=== PATIENT | male | born 1985 | race Caucasian/White ===

== ENCOUNTER 2018-06-30 21:51 | Emergency (ER) | payer OTHER ==
[~2018-06-30] VITALS: Ht 185.4 cm; Wt 265.9 kg
[~2018-06-30 21:51] MED LIST: APIX5TAB3 PO; INSU100V36 SQ; LANTUS SQ; METO25TA6 PO; MULT-1085 PO
[2018-06-30 22:28] VITALS: BP 133/91
== END 2018-06-30 22:54 | disposition home or self-care (01) ==
LOC: ER 21:52
DX: Z77.21 Contact with and (suspected) exposure to potentially hazardous body fluids (principal); E11.9 Type 2 diabetes mellitus without complications; I48.91 Unspecified atrial fibrillation; Z88.0 Allergy status to penicillin; Z79.4 Long term (current) use of insulin; Z79.899 Other long term (current) drug therapy
CPT/HCPCS: 99281

== ENCOUNTER 2018-10-20 12:58 | Emergency (ER) | payer OTHER ==
[~2018-10-20] VITALS: Ht 193 cm; Wt 129.6 kg
[2018-10-20 13:09] VITALS: BP 162/94
== END 2018-10-20 14:21 | disposition home or self-care (01) ==
LOC: ER 12:58
DX: S61.552A Open bite of left wrist, initial encounter (principal); S61.551A Open bite of right wrist, initial encounter; I48.91 Unspecified atrial fibrillation; E11.9 Type 2 diabetes mellitus without complications; Z88.0 Allergy status to penicillin; Z79.4 Long term (current) use of insulin; Z79.899 Other long term (current) drug therapy; Y04.1XXA Assault by human bite, initial encounter; Y93.89 Activity, other specified; Y92.89 Other specified places as the place of occurrence of the external cause; Y99.8 Other external cause status
CPT/HCPCS: 99281

== ENCOUNTER 2019-01-24 17:19 | Emergency (ER) | payer OTHER ==
[~2019-01-24] VITALS: Ht 190.5 cm; Wt 129.6 kg
[2019-01-24 17:20] VITALS: BP 141/88
[2019-01-24] MEDS ORDERED: SULF1TAB49 PO (17:42)
== END 2019-01-24 17:50 | disposition home or self-care (01) ==
LOC: ER 17:19
DX: L03.116 Cellulitis of left lower limb (principal); L02.416 Cutaneous abscess of left lower limb; I48.91 Unspecified atrial fibrillation; E11.9 Type 2 diabetes mellitus without complications; F10.99 Alcohol use, unspecified with unspecified alcohol-induced disorder; Z86.14 Personal history of Methicillin resistant Staphylococcus aureus infection; Z88.0 Allergy status to penicillin; Z79.899 Other long term (current) drug therapy; Z79.4 Long term (current) use of insulin; Y90.9 Presence of alcohol in blood, level not specified
CPT/HCPCS: 99283

== ENCOUNTER 2020-03-26 19:26 | Emergency (ER) | payer OTHER ==
[2020-03-26 19:33] VITALS: BP 139/97
== END 2020-03-26 20:22 | disposition home or self-care (01) ==
LOC: ER 19:27
DX: Z77.21 Contact with and (suspected) exposure to potentially hazardous body fluids (principal); I48.91 Unspecified atrial fibrillation; E11.9 Type 2 diabetes mellitus without complications; Z86.14 Personal history of Methicillin resistant Staphylococcus aureus infection; Z72.89 Other problems related to lifestyle; Z88.0 Allergy status to penicillin; Z79.4 Long term (current) use of insulin; Z79.899 Other long term (current) drug therapy
CPT/HCPCS: 99281

== ENCOUNTER 2020-07-20 20:09 | Emergency (ER) | payer OTHER ==
[~2020-07-20] VITALS: Ht 193 cm; Wt 149.2 kg
[2020-07-20 21:08] VITALS: BP 136/86
== END 2020-07-20 21:09 | disposition home or self-care (01) ==
LOC: ER 20:10 → MERGE 20:10 → EEVIPCON 20:10 → ER 21:09
DX: M25.562 Pain in left knee (principal); Z88.0 Allergy status to penicillin; Z87.828 Personal history of other (healed) physical injury and trauma
CPT/HCPCS: 73564; 99283

== ENCOUNTER 2020-08-01 14:50 | Outpatient (CLI) | payer BC ==
[2020-08-01 16:43] LABS: HEMOGLOBIN A1C 6.7 % (4.5-6.2)
[2020-08-01 16:49] LABS: ALANINE AMINOTRANSFERASE 34 U/L (12-78); ALBUMIN 4.2 G/DL (3.4-5.0); ALBUMIN/GLOBULIN RATIO 1.1 (1.1-1.5); ALKALINE PHOSPHATASE 66 IU/L (46-116); ANION GAP 14 (8-16); ASPARTATE AMINO TRANSFERASE 24 U/L (10-37); BILIRUBIN,TOTAL 0.5 MG/DL (0.1-1.0); BLOOD UREA NITROGEN 15 MG/DL (7-18); CALCIUM 9.5 MG/DL (8.5-10.1); CHLORIDE 104 MMOL/L (99-107); CHOL/HDL RATIO 3.5 (0.00-4.99); CHOLESTEROL 173 MG/DL (0-200); GLUCOSE 147 MG/DL (70-104); HDL CHOLESTEROL 49 MG/DL (35-60); LDL CHOLESTEROL 107 MG/DL (50-100); POTASSIUM 3.9 MMOL/L (3.5-5.1); SODIUM 140 MMOL/L (135-145); TOTAL CARBON DIOXIDE 22.5 MMOL/L (24-32); TOTAL PROTEIN 7.9 G/DL (6.4-8.2); TRIGLYCERIDES 113 MG/DL (20-135); eGFR 85 ML/MIN
== END 2020-08-01 23:59 | disposition home or self-care (01) ==
LOC: LAB 14:50
PROVIDERS: ATTEND Nurse Practitioner Family
DX: E78.00 Pure hypercholesterolemia, unspecified (principal); I11.9 Hypertensive heart disease without heart failure; E70.9 Disorder of aromatic amino-acid metabolism, unspecified
CPT/HCPCS: 36415; 80053; 80061; 83036

== ENCOUNTER 2021-08-06 06:53 | Outpatient (CLI) | payer BC ==
[~2021-08-06 06:53] MED LIST changes: +LOP25T PO; -METO25TA6 PO
[2021-08-06 08:26] LABS: HEMOGLOBIN A1C 7.1 % (4.5-6.2)
[2021-08-06 08:40] LABS: ALANINE AMINOTRANSFERASE 56 U/L (12-78); ALBUMIN/GLOBULIN RATIO 1.1 (1.1-1.5); ALKALINE PHOSPHATASE 56 IU/L (46-116); ANION GAP 11 (8-16); ASPARTATE AMINO TRANSFERASE 46 U/L (10-37); BILIRUBIN,TOTAL 0.6 MG/DL (0.1-1.0); BLOOD UREA NITROGEN 10 MG/DL (7-18); BUN/CREATININE RATIO 11.8 (5.4-32.0); CALCIUM 8.9 MG/DL (8.5-10.1); CHLORIDE 104 MMOL/L (99-107); CREATININE 0.85 MG/DL (0.60-1.10); GLUCOSE 177 MG/DL (70-104); POTASSIUM 4.3 MMOL/L (3.5-5.1); SODIUM 138 MMOL/L (135-145); TOTAL CARBON DIOXIDE 22.8 MMOL/L (24-32); TOTAL PROTEIN 7.5 G/DL (6.4-8.2); eGFR > 90 ML/MIN
== END 2021-08-06 23:59 | disposition home or self-care (01) ==
LOC: LAB 06:53
PROVIDERS: ATTEND Nurse Practitioner Family
DX: E11.9 Type 2 diabetes mellitus without complications (principal); E78.00 Pure hypercholesterolemia, unspecified; I11.9 Hypertensive heart disease without heart failure; E83.52 Hypercalcemia
CPT/HCPCS: 36415; 80053; 82043; 82306; 82570; 83036

== ENCOUNTER 2022-03-24 22:42 | Emergency (ER) | payer BC, OTHER ==
[~2022-03-24] VITALS: Ht 193 cm; Wt 145.4 kg
[2022-03-24 23:43] VITALS: BP 124/85
== END 2022-03-25 00:18 | disposition home or self-care (01) ==
LOC: ER 22:42
DX: Z77.21 Contact with and (suspected) exposure to potentially hazardous body fluids (principal); E11.9 Type 2 diabetes mellitus without complications; Z86.14 Personal history of Methicillin resistant Staphylococcus aureus infection; I51.9 Heart disease, unspecified; Z88.0 Allergy status to penicillin; Z79.899 Other long term (current) drug therapy
CPT/HCPCS: 99281

== ENCOUNTER 2023-07-23 16:44 | Emergency (ER) | payer OTHER ==
[~2023-07-23] VITALS: Ht 190.5 cm; Wt 180.6 kg
[2023-07-23 17:27] VITALS: BP 173/108; PULSE 122; RESP 16; TEMP 98; O2SAT 98
== END 2023-07-23 17:57 | disposition home or self-care (01) ==
LOC: ER 16:45
DX: S00.83XA Contusion of other part of head, initial encounter (principal); E11.9 Type 2 diabetes mellitus without complications; I48.91 Unspecified atrial fibrillation; I25.10 Atherosclerotic heart disease of native coronary artery without angina pectoris; Z79.899 Other long term (current) drug therapy; Z79.4 Long term (current) use of insulin; Z72.89 Other problems related to lifestyle; Z88.0 Allergy status to penicillin; X58.XXXA Exposure to other specified factors, initial encounter; Y93.89 Activity, other specified; Y92.89 Other specified places as the place of occurrence of the external cause; Y99.8 Other external cause status
CPT/HCPCS: 99281

== ENCOUNTER 2024-01-07 04:32 | Emergency (ER) | payer BC, OTHER ==
[~2024-01-07] VITALS: Ht 195.6 cm; Wt 175.0 kg
[2024-01-07] MEDS: diltiazem 5mg/ml 5ml inj. IV ONE ×3 (05:04→05:31)
[2024-01-07 05:25] LABS: BASOPHILS # (AUTO) 0.1 X10'3 (0-0.2); BASOPHILS % (AUTO) 1.3 % (0-1); EOSINOPHILS # (AUTO) 0.1 X10'3 (0-0.9); EOSINOPHILS % (AUTO) 1.4 % (0-6); HEMOGLOBIN 15.5 g/dl (14.0-17.9); MEAN CORPUSCULAR HEMOGLOBIN 31.6 PG (27.0-31.0); MEAN CORPUSCULAR HGB CONC 33.6 g/dL (33.0-36.5); MEAN PLATELET VOLUME 9.3 FL (7.4-10.4); MONOCYTES # (AUTO) 0.7 X10'3 (0-0.9); MONOCYTES % (AUTO) 11.4 % (2-12); NEUTROPHILS # (AUTO) 3.3 X10'3 (1.8-7.7); NEUTROPHILS % (AUTO) 53.9 % (42-75); PLATELET COUNT 147 X10'3 (140-440); RED BLOOD COUNT 4.89 X10'6 (4.70-6.10); RED CELL DISTRIBUTION WIDTH 13.5 % (11.5-14.5); WHITE BLOOD COUNT 6.1 X10'3 (4.5-11.0)
[2024-01-07 05:36] LABS: ALBUMIN 3.6 G/DL (3.4-5.0); ANION GAP 12 (8-16); BLOOD UREA NITROGEN 10 MG/DL (7-18); BUN/CREATININE RATIO 9.9 (10.0-20.0); CALCIUM 8.9 MG/DL (8.5-10.1); CHLORIDE 103 MMOL/L (99-107); CREATININE 1.01 MG/DL (0.60-1.10); GLUCOSE 219 MG/DL (70-104); POTASSIUM 3.8 MMOL/L (3.5-5.1); PRO BRAIN NATRIURETIC PEPTIDE < 30 PG/ML (0-125); SODIUM 138 MMOL/L (135-145); TOTAL CARBON DIOXIDE 22.6 MMOL/L (24-32); eCRCL 124 ML/MIN; eGFR 82 ML/MIN
[2024-01-07] MEDS: metoprolol tartrate 1mg/ml inj IV SCH (05:51)
[2024-01-07] MEDS: metoprolol succinate 25mg (24-HOUR) SR. Tablet PO ONE (06:02)
[2024-01-07] MEDS: normal saline 1000ml 1,000 ML IV ONE (06:21)
[2024-01-07] MEDS: etomidate 2mg/ml inj. IV ONE (07:32)
[2024-01-07 08:02] VITALS: BP 133/88; PULSE 85; RESP 18; TEMP 98.2; O2SAT 94
== END 2024-01-07 09:00 | disposition home or self-care (01) ==
LOC: ER 04:33
DX: I48.20 Chronic atrial fibrillation, unspecified (principal); E11.9 Type 2 diabetes mellitus without complications; Z88.0 Allergy status to penicillin; Z79.899 Other long term (current) drug therapy; Z79.4 Long term (current) use of insulin
CPT/HCPCS: 36415; 71045; 80048; 83880; 84484; 85025; 92960; 93005; 96361; 96374; 96375; 96376; 99152; 99291; J3490; J7030; 94760

== ENCOUNTER 2024-01-20 06:12 | Emergency (ER) | payer BC ==
[~2024-01-20] VITALS: Ht 195.6 cm; Wt 81.6 kg
[2024-01-20] MEDS: insulin regular, human 10 units/0.1 ml syringe SQ ONE (06:55)
[2024-01-20 07:02] VITALS: BP 161/100; PULSE 84; RESP 16; TEMP 98.6; O2SAT 99
== END 2024-01-20 07:03 | disposition home or self-care (01) ==
LOC: ER 06:13
DX: E11.65 Type 2 diabetes mellitus with hyperglycemia (principal); I48.91 Unspecified atrial fibrillation; Z88.0 Allergy status to penicillin; Z79.899 Other long term (current) drug therapy; Z79.4 Long term (current) use of insulin
CPT/HCPCS: 82948; 96372; 99283; J1815

== ENCOUNTER 2024-03-14 09:33 | Inpatient (IN) | payer BC ==
[~2024-03-14] VITALS: Ht 195.6 cm; Wt 140.0 kg
[2024-03-14 09:58] LABS: BASOPHILS # (AUTO) 0.1 X10'3 (0-0.2); BASOPHILS % (AUTO) 0.7 % (0-1); EOSINOPHILS # (AUTO) 0.1 X10'3 (0-0.9); EOSINOPHILS % (AUTO) 0.8 % (0-6); HEMATOCRIT 47.3 % (42.0-52.0); HEMOGLOBIN 15.5 g/dl (14.0-17.9); LYMPHOCYTES # (AUTO) 1.5 X10'3 (1.1-4.8); LYMPHOCYTES % (AUTO) 16.1 % (21-51); MEAN CORPUSCULAR HEMOGLOBIN 31.3 PG (27.0-31.0); MEAN CORPUSCULAR HGB CONC 32.7 g/dL (33.0-36.5); MEAN CORPUSCULAR VOLUME 95.9 FL (78-98); MEAN PLATELET VOLUME 9.9 FL (7.4-10.4); MONOCYTES # (AUTO) 0.8 X10'3 (0-0.9); MONOCYTES % (AUTO) 8.8 % (2-12); NEUTROPHILS % (AUTO) 73.6 % (42-75); PLATELET COUNT 181 X10'3 (140-440); RED BLOOD COUNT 4.94 X10'6 (4.70-6.10); RED CELL DISTRIBUTION WIDTH 14.2 % (11.5-14.5); WHITE BLOOD COUNT 9.5 X10'3 (4.5-11.0)
[2024-03-14 10:17] LABS: ALANINE AMINOTRANSFERASE 321 U/L (12-78); ALBUMIN 3.4 G/DL (3.4-5.0); ALBUMIN/GLOBULIN RATIO 0.9 (1.1-1.5); ALKALINE PHOSPHATASE 82 IU/L (46-116); ANION GAP 18 (8-16); ASPARTATE AMINO TRANSFERASE 272 U/L (10-37); BILIRUBIN,TOTAL 3.1 MG/DL (0.1-1.0); BLOOD UREA NITROGEN 11 MG/DL (7-18); BUN/CREATININE RATIO 9.8 (10.0-20.0); CALCIUM 8.7 MG/DL (8.5-10.1); CHLORIDE 98 MMOL/L (99-107); CREATININE 1.12 MG/DL (0.60-1.10); GLUCOSE 205 MG/DL (70-104); POTASSIUM 4.4 MMOL/L (3.5-5.1); SODIUM 133 MMOL/L (135-145); TOTAL CARBON DIOXIDE 16.9 MMOL/L (24-32); TOTAL PROTEIN 7.1 G/DL (6.4-8.2); eCRCL 110 ML/MIN; eGFR 73 ML/MIN
[2024-03-14] MEDS: magnesium sulf-water 2g/50mL 50 ML IV ONE (10:21)
[2024-03-14] MEDS: midazolam 1 mg/ML 2ml injection IV ONE (10:21)
[2024-03-14 10:26] LABS: PRO BRAIN NATRIURETIC PEPTIDE 1226 PG/ML (0-125)
[2024-03-14] MEDS: etomidate 2mg/ml inj. IV ONE (10:41)
[2024-03-14 10:58] VITALS: RESP 18; O2SAT 100
[2024-03-14] MEDS ORDERED: ondansetron/PF 4mg/2ml inj IV PRN (13:10)
[2024-03-14] MEDS ORDERED: magnesium hydroxide 30ml (MOM) UD suspension PO PRN (13:10)
[2024-03-14] MEDS ORDERED: potassium Cl 40MEQ/1/2NS 520ml 520 ML IV PRN (13:10)
[2024-03-14] MEDS ORDERED: mag hydrox/Alum hydrox/simeth 30ml oral suspension PO PRN (13:10)
[2024-03-14] MEDS ORDERED: potassium Cl 20 mEq SR tablet PO PRN ×2 (13:10)
[2024-03-14] MEDS ORDERED: acetaminophen 325mg tablet PO PRN (13:10)
[2024-03-14] MEDS ORDERED: morphine 2 MG/ML inj. syringe IV PRN (13:10)
[2024-03-14] MEDS ORDERED: magnesium sulf-water 4G/100mL 100 ML IV PRN (13:10)
[2024-03-14] MEDS ORDERED: magnesium Cl slow-release 64mg tablet PO PRN (13:10)
[2024-03-14] MEDS ORDERED: magnesium sulf-water 2g/50mL 50 ML IV PRN (13:10)
[2024-03-14] MEDS ORDERED: HYDROcodone/acetaminophen 5mg/325mg tablet PO PRN (13:10)
[2024-03-14] MEDS: PERFLUTREN PROTEIN-A MICROSPHR (Optison) 0.22 MG/ML 3ML VIAL IV ONE (13:24)
[2024-03-14] MEDS: furosemide 10 MG/1 ML 10ml inj IV ONE (13:33)
[2024-03-14 13:50] LABS: HEMOGLOBIN A1C 7.4 % (4.5-6.2)
[2024-03-14 14:05] LABS: BILIRUBIN,URINE MODERATE (Neg); CLARITY,URINE SLIGHTLY CLOUDY (Clear); COLOR,URINE YELLOW (Yellow); GLUCOSE, URINE 250 mg/dl (Neg); KETONES,URINE >=80 mg/dl (Neg); LEUKOCYTE ESTERASE ,URINE NEGATIVE (Neg); NITRITES, URINE NEGATIVE (Neg); OCCULT BLOOD,URINE TRACE-INTACT (Neg); PROTEIN,URINE 100 mg/dl (Neg)
[2024-03-14 14:41] LABS: UA COLLECTION TYPE VOIDED
[2024-03-14 14:44] LABS: RBC,URINE 0-2 /HPF (0-2); WBC,URINE 20-30 /HPF (0-4)
[2024-03-14 14:45] LABS: BACTERIA,URINE FEW /HPF (Neg); MUCUS STRANDS MODERATE /LPF (Neg); SQUAMOUS EPITHELIAL CELL,UR FEW /LPF (FEW)
[2024-03-14] MEDS ORDERED: CHOL20004 PO (16:22)
[2024-03-14] MEDS ORDERED: INSU300I SQ (16:22)
[2024-03-14] MEDS ORDERED: glucagon, human recombinant 1mg kit SUBCUT PRN (16:55)
[2024-03-14] MEDS ORDERED: DEXTROSE 15 GM of carb/4 tabs (each vial/BOTTLE has 4 tablets) PO PRN ×2 (16:55)
[2024-03-14] MEDS ORDERED: dextrose 50%-water 50ml dispensing syringe IV PRN ×2 (16:55)
[2024-03-14] MEDS: INSULIN LISPRO 100 UNIT/ML INSULN.PEN MULTI-DOSE SQ SCH (17:31)
[2024-03-14] MEDS: metoprolol succinate 25mg (24-HOUR) SR. Tablet PO SCH (17:34)
[2024-03-14 18:00] VITALS: BP 134/97; PULSE 112; RESP 20; TEMP 97.4; O2SAT 91
[2024-03-14 19:57] LABS: CREATININE 1.17 MG/DL (0.60-1.10); eCRCL 106 ML/MIN; eGFR 69 ML/MIN
[2024-03-14] MEDS: docusate sod 100mg capsule PO SCH (20:00)
[2024-03-14] MEDS: K and/or MAG REPLACEMENT MC SCH (20:00)
[2024-03-14] MEDS: furosemide 10 MG/1 ML 10ml inj IV SCH (21:14)
[2024-03-14] MEDS: apixaban 5mg tablet PO SCH (21:15)
[2024-03-14] MEDS: heparin, porcine 5000 units/ml vial SQ SCH (21:16)
[2024-03-14 22:00] VITALS: BP 121/92; PULSE 106; RESP 15; TEMP 97.3; O2SAT 94
[2024-03-14] MEDS ORDERED: ROSU40TA PO (22:58)
[2024-03-15] VITALS (8 sets, daily range): BP systolic 105–144; BP diastolic 60–100; PULSE 93–100; RESP 14–21; TEMP 97–98.6; O2SAT 94–98
[2024-03-15] MEDS: EMPAGLIFLOZIN 10 MG TABLET PO SCH (07:46)
[2024-03-15] MEDS: spironolactone 25 MG tablet PO SCH (07:48)
[2024-03-15] MEDS: CefTRIAXone/D5W-Rocephin 1gm 50 ML IV SCH (07:49)
[2024-03-15] MEDS: insulin glargine (Lantus) pen - multi-dose SQ SCH (07:51)
[2024-03-15 07:55] LABS: BASOPHILS # (AUTO) 0.1 X10'3 (0-0.2); EOSINOPHILS # (AUTO) 0.1 X10'3 (0-0.9); HEMATOCRIT 43.2 % (42.0-52.0); HEMOGLOBIN 14.4 g/dl (14.0-17.9); LYMPHOCYTES # (AUTO) 1.2 X10'3 (1.1-4.8); LYMPHOCYTES % (AUTO) 18.6 % (21-51); MEAN CORPUSCULAR HEMOGLOBIN 31.9 PG (27.0-31.0); MEAN CORPUSCULAR HGB CONC 33.4 g/dL (33.0-36.5); MEAN CORPUSCULAR VOLUME 95.4 FL (78-98); MEAN PLATELET VOLUME 10.3 FL (7.4-10.4); MONOCYTES # (AUTO) 0.7 X10'3 (0-0.9); NEUTROPHILS # (AUTO) 4.3 X10'3 (1.8-7.7); NEUTROPHILS % (AUTO) 67.4 % (42-75); PLATELET COUNT 139 X10'3 (140-440); RED BLOOD COUNT 4.52 X10'6 (4.70-6.10); WHITE BLOOD COUNT 6.3 X10'3 (4.5-11.0)
[2024-03-15 08:30] LABS: ANION GAP 13 (8-16); BLOOD UREA NITROGEN 15 MG/DL (7-18); BUN/CREATININE RATIO 15.2 (10.0-20.0); CALCIUM 8.5 MG/DL (8.5-10.1); CHLORIDE 96 MMOL/L (99-107); CREATININE 0.99 MG/DL (0.60-1.10); GLUCOSE 221 MG/DL (70-104); POTASSIUM 3.8 MMOL/L (3.5-5.1); SODIUM 132 MMOL/L (135-145); TOTAL CARBON DIOXIDE 23.5 MMOL/L (24-32); eCRCL 125 ML/MIN; eGFR 84 ML/MIN
[2024-03-15 11:43] LABS: ALANINE AMINOTRANSFERASE 215 U/L (12-78); ALBUMIN/GLOBULIN RATIO 0.8 (1.1-1.5); ALKALINE PHOSPHATASE 101 IU/L (46-116); ASPARTATE AMINO TRANSFERASE 119 U/L (10-37); BILIRUBIN,DIRECT 0.9 MG/DL (0-0.3); BILIRUBIN,TOTAL 1.7 MG/DL (0.1-1.0); TOTAL PROTEIN 6.6 G/DL (6.4-8.2)
[2024-03-15] MEDS ORDERED: nitroGLYCERIN 0.4mg SUBLingual tab SL PRN (16:10)
[2024-03-15] MEDS ORDERED: aminophylline 250mg/10ml inj. IV PRN (16:10)
[2024-03-15] MEDS ORDERED: metoprolol tartrate 1mg/ml inj IV PRN (16:10)
[2024-03-15] MEDS: ALPRAZolam 0.25mg tablet PO PRN (17:43)
[2024-03-15] MEDS: furosemide 40mg/4ml inj IV SCH (20:28)
[2024-03-16] VITALS (12 sets, daily range): BP systolic 96–155; BP diastolic 68–105; PULSE 84–108; RESP 15–18; TEMP 97.2–98.2; O2SAT 93–96
[2024-03-16 07:28] LABS: ALANINE AMINOTRANSFERASE 183 U/L (12-78); ALBUMIN 3.2 G/DL (3.4-5.0); ALBUMIN/GLOBULIN RATIO 0.8 (1.1-1.5); ALKALINE PHOSPHATASE 82 IU/L (46-116); ANION GAP 13 (8-16); ASPARTATE AMINO TRANSFERASE 100 U/L (10-37); BILIRUBIN,TOTAL 1.6 MG/DL (0.1-1.0); BLOOD UREA NITROGEN 15 MG/DL (7-18); BUN/CREATININE RATIO 16.1 (10.0-20.0); CALCIUM 9.4 MG/DL (8.5-10.1); CHLORIDE 96 MMOL/L (99-107); CREATININE 0.93 MG/DL (0.60-1.10); GLUCOSE 174 MG/DL (70-104); MAGNESIUM 2.1 MG/DL (1.5-2.4); SODIUM 133 MMOL/L (135-145); TOTAL CARBON DIOXIDE 23.7 MMOL/L (24-32); eCRCL 133 ML/MIN; eGFR 90 ML/MIN
[2024-03-16 08:02] LABS: BASOPHILS # (AUTO) 0.1 X10'3 (0-0.2); BASOPHILS % (AUTO) 1.3 % (0-1); EOSINOPHILS # (AUTO) 0.1 X10'3 (0-0.9); EOSINOPHILS % (AUTO) 2.2 % (0-6); HEMATOCRIT 48.8 % (42.0-52.0); HEMOGLOBIN 16.1 g/dl (14.0-17.9); LYMPHOCYTES # (AUTO) 1.1 X10'3 (1.1-4.8); LYMPHOCYTES % (AUTO) 18.2 % (21-51); MEAN CORPUSCULAR HEMOGLOBIN 31.7 PG (27.0-31.0); MEAN CORPUSCULAR HGB CONC 33.1 g/dL (33.0-36.5); MEAN PLATELET VOLUME 10.2 FL (7.4-10.4); MONOCYTES # (AUTO) 0.7 X10'3 (0-0.9); MONOCYTES % (AUTO) 11.4 % (2-12); NEUTROPHILS # (AUTO) 4.1 X10'3 (1.8-7.7); NEUTROPHILS % (AUTO) 66.9 % (42-75); PLATELET COUNT 166 X10'3 (140-440); RED BLOOD COUNT 5.09 X10'6 (4.70-6.10); RED CELL DISTRIBUTION WIDTH 14.4 % (11.5-14.5); WHITE BLOOD COUNT 6.1 X10'3 (4.5-11.0)
[2024-03-16 08:39] LABS: POTASSIUM 4.2 MMOL/L (3.5-5.1)
[2024-03-16] MEDS: regadenoson 0.4mg/5ml syringe IV PRN (11:33)
[2024-03-16] MEDS ORDERED: SPIR25TA PO (18:54)
[2024-03-16] MEDS ORDERED: APIX5TAB3 PO (18:54)
[2024-03-16] MEDS ORDERED: EMPA10TA PO (18:54)
[2024-03-16] MEDS ORDERED: METO-395 PO (18:54)
[2024-03-16] MEDS: FLU VACC TS2024-25(6MOS UP)/PF 45 MCG/0.5 ML SYRINGE IMVAC ONE (20:16)
== END 2024-03-16 20:40 | disposition home or self-care (01) | DRG 309 ==
LOC: ER 09:33 → UNDOADMIN 12:25 → ED HOLD 12:25 → PCU 3S 18:21
PROVIDERS: ADMIT Internal Medicine; ATTEND Internal Medicine
PROC: 5A2204Z Restoration of Cardiac Rhythm, Single (ICD-10-PCS; principal; 2024-03-14)
PROC: 3E02340 Introduction of Influenza Vaccine into Muscle, Percutaneous Approach (ICD-10-PCS; 2024-03-15)
PROC: 4A02XM4 Measurement of Cardiac Total Activity, External Approach (ICD-10-PCS; 2024-03-16)
PROC: 3E033HZ Introduction of Radioactive Substance into Peripheral Vein, Percutaneous Approach (ICD-10-PCS; 2024-03-16)
DX: I48.91 Unspecified atrial fibrillation (principal); E87.20 Acidosis, unspecified; I50.20 Unspecified systolic (congestive) heart failure; I25.10 Atherosclerotic heart disease of native coronary artery without angina pectoris; R74.01 Elevation of levels of liver transaminase levels; E11.9 Type 2 diabetes mellitus without complications; I11.0 Hypertensive heart disease with heart failure; R82.71 Bacteriuria; R74.8 Abnormal levels of other serum enzymes; I48.92 Unspecified atrial flutter; I42.8 Other cardiomyopathies; Z88.0 Allergy status to penicillin; Z79.4 Long term (current) use of insulin; Z79.899 Other long term (current) drug therapy; Z23 Encounter for immunization
CPT/HCPCS: 36415; 71045; 78452; 80048; 80053; 80076; 81001; 82565; 82948; 83036; 83605; 83735; 83880; 84484; 85025; 87081; 87088; 93005; 93017; 93306; 96365; 96375; 99291; A4620; A9500; G0378; J0696; J1644; J1815; J1940; J2250; J2785; J3490; J7030; J7040

== ENCOUNTER 2024-04-27 20:17 | Inpatient (IN) | payer BC ==
[~2024-04-27] VITALS: Ht 193 cm; Wt 156.7 kg
[~2024-04-27 20:17] MED LIST changes: +CHOL20004 PO; +EMPA10TA PO; +INSU300I SQ; -LANTUS SQ; -LOP25T PO; +METO-395 PO; +ROSU40TA PO; +SPIR25TA PO
[2024-04-27] MEDS: diltiazem 5mg/ml 5ml inj. IV ONE ×2 (20:42→21:44)
[2024-04-27 20:49] LABS: BASOPHILS % (AUTO) 0.4 % (0-1); EOSINOPHILS % (AUTO) 0.3 % (0-6); HEMATOCRIT 53.5 % (42.0-52.0); HEMOGLOBIN 17.6 g/dl (14.0-17.9); LYMPHOCYTES # (AUTO) 2.4 X10'3 (1.1-4.8); LYMPHOCYTES % (AUTO) 20.3 % (21-51); MEAN CORPUSCULAR HEMOGLOBIN 30.8 PG (27.0-31.0); MEAN CORPUSCULAR HGB CONC 32.9 g/dL (33.0-36.5); MEAN CORPUSCULAR VOLUME 93.4 FL (78-98); MEAN PLATELET VOLUME 10.1 FL (7.4-10.4); MONOCYTES % (AUTO) 8.8 % (2-12); NEUTROPHILS # (AUTO) 8.2 X10'3 (1.8-7.7); NEUTROPHILS % (AUTO) 70.2 % (42-75); PLATELET COUNT 206 X10'3 (140-440); RED BLOOD COUNT 5.72 X10'6 (4.70-6.10); RED CELL DISTRIBUTION WIDTH 13.2 % (11.5-14.5); WHITE BLOOD COUNT 11.7 X10'3 (4.5-11.0)
[2024-04-27] MEDS: diltiazem-NS 100mg/100ml 100 ML IV SCH (20:59)
[2024-04-27 21:14] LABS: ALANINE AMINOTRANSFERASE 48 U/L (12-78); ALBUMIN 3.7 G/DL (3.4-5.0); ALKALINE PHOSPHATASE 60 IU/L (46-116); ANION GAP 26 (8-16); ASPARTATE AMINO TRANSFERASE 32 U/L (10-37); BILIRUBIN,TOTAL 0.6 MG/DL (0.1-1.0); BLOOD UREA NITROGEN 15 MG/DL (7-18); BUN/CREATININE RATIO 8.2 (10.0-20.0); CALCIUM 8.2 MG/DL (8.5-10.1); CHLORIDE 99 MMOL/L (99-107); CREATININE 1.82 MG/DL (0.60-1.10); GLUCOSE 160 MG/DL (70-104); PRO BRAIN NATRIURETIC PEPTIDE 808 PG/ML (0-125); SODIUM 134 MMOL/L (135-145); TOTAL PROTEIN 7.5 G/DL (6.4-8.2); eCRCL 66 ML/MIN; eGFR 41 ML/MIN
[2024-04-27 21:24] LABS: TOTAL CARBON DIOXIDE 9.4 MMOL/L (24-32)
[2024-04-27 21:35] VITALS: TEMP 98.4
[2024-04-27 21:35] LABS: POTASSIUM 4.6 MMOL/L (3.5-5.1)
[2024-04-27] MEDS: normal saline 1000ml 1,000 ML IV ONE (21:38)
[2024-04-27] MEDS: magnesium sulf-water 2g/50mL 50 ML IV ONE (22:32)
[2024-04-27] MEDS: LORazepam 2 mg/ml vial IV ONE (23:09)
[2024-04-28] VITALS (20 sets, daily range): BP systolic 98–127; BP diastolic 51–76; PULSE 84–116; RESP 12–19; O2SAT 94–100
[2024-04-28] MEDS ORDERED: potassium Cl 40MEQ/1/2NS 520ml 520 ML IV PRN ×2 (00:20→00:50)
[2024-04-28 00:26] LABS: ETHANOL < 10 MG/DL (<10)
[2024-04-28] MEDS ORDERED: sodium bicarbonate (8.4%) inj. 100 MEQ in dextrose 5% water 500ml 500 ML IV PRN (00:50)
[2024-04-28] MEDS: normal saline 1000ml 1,000 ML IV SCH (00:50)
[2024-04-28] MEDS ORDERED: sodium bicarbonate (8.4%) inj. 50 MEQ in dextrose 5% water 500ml 250 ML IV PRN (00:50)
[2024-04-28] MEDS ORDERED: dextrose 50%-water 50ml dispensing syringe IV PRN ×3 (00:50→18:30)
[2024-04-28] MEDS ORDERED: potassium Cl 20 mEq SR tablet PO PRN ×2 (00:50)
[2024-04-28] MEDS ORDERED: potassium CL 20mEq in D5-1/2NS 1,000 ML IV PRN ×2 (00:50→01:55)
[2024-04-28 00:59] LABS: ALBUMIN 3.4 G/DL (3.4-5.0); ANION GAP 25 (8-16); BLOOD UREA NITROGEN 16 MG/DL (7-18); BUN/CREATININE RATIO 9.6 (10.0-20.0); CALCIUM 7.6 MG/DL (8.5-10.1); CHLORIDE 100 MMOL/L (99-107); CREATININE 1.67 MG/DL (0.60-1.10); GLUCOSE 149 MG/DL (70-104); POTASSIUM 4.8 MMOL/L (3.5-5.1); SODIUM 134 MMOL/L (135-145); eCRCL 72 ML/MIN; eGFR 46 ML/MIN
[2024-04-28 01:18] LABS: TOTAL CARBON DIOXIDE 9.1 MMOL/L (24-32)
[2024-04-28] MEDS ORDERED: ondansetron/PF 4mg/2ml inj IV PRN (01:35)
[2024-04-28] MEDS ORDERED: morphine 4 MG/ML inj SYRINge IV PRN (01:35)
[2024-04-28] MEDS ORDERED: acetaminophen 325mg tablet PO PRN ×2 (01:35)
[2024-04-28] MEDS: Insulin Reg/NS 100units/100mL 100 ML IV SCH (01:35)
[2024-04-28] MEDS ORDERED: morphine 2 MG/ML inj. syringe IV PRN (01:35)
[2024-04-28] MEDS: dextrose 5%-1/2 normal saline 1,000 ML IV ONE (01:48)
[2024-04-28 02:04] LABS: BILIRUBIN,URINE NEGATIVE (Neg); CLARITY,URINE CLEAR (Clear); COLOR,URINE YELLOW (Yellow); GLUCOSE, URINE 500 mg/dl (Neg); KETONES,URINE >=80 mg/dl (Neg); LEUKOCYTE ESTERASE ,URINE NEGATIVE (Neg); NITRITES, URINE NEGATIVE (Neg); PH,URINE 5.5 (4.8-8.0); PROTEIN,URINE 30 mg/dl (Neg); UROBILINOGEN,URINE 0.2 E.U/dL (0.2-1.0)
[2024-04-28 02:05] LABS: UA COLLECTION TYPE CLN CATCH MIDSTREAM
[2024-04-28 02:18] LABS: ALBUMIN 3.5 G/DL (3.4-5.0); ANION GAP 26 (8-16); BLOOD UREA NITROGEN 14 MG/DL (7-18); BUN/CREATININE RATIO 9.1 (10.0-20.0); CHLORIDE 101 MMOL/L (99-107); CREATININE 1.54 MG/DL (0.60-1.10); GLUCOSE 151 MG/DL (70-104); PHOSPHORUS 3.2 MG/DL (2.3-4.5); POTASSIUM 4.7 MMOL/L (3.5-5.1); SODIUM 135 MMOL/L (135-145); eCRCL 78 ML/MIN; eGFR 50 ML/MIN
[2024-04-28 02:21] LABS: BACTERIA,URINE FEW /HPF (Neg); OCCULT BLOOD,URINE Trace (Neg); RBC,URINE NONE SEEN /HPF (0-2); SQUAMOUS EPITHELIAL CELL,UR FEW /LPF (FEW); WBC,URINE NONE SEEN /HPF (0-4)
[2024-04-28 02:25] LABS: ACETONE SMALL (NEGATIVE)
[2024-04-28 02:37] LABS: TOTAL CARBON DIOXIDE 8.1 MMOL/L (24-32)
[2024-04-28] MEDS ORDERED: METO-384 PO (02:50)
[2024-04-28] MEDS: dextrose 5%-normal saline 1,000 ML IV SCH (03:20)
[2024-04-28] MEDS: morphine 4 MG/ML inj SYRINge IV ONE (03:40)
[2024-04-28] MEDS ORDERED: diltiazem-NS 100mg/100ml 100 ML IV SCH (05:40)
[2024-04-28] MEDS: metoprolol succinate 25mg (24-HOUR) SR. Tablet PO SCH (07:49)
[2024-04-28] MEDS: ringers solution, lacted 1,000 ML IV ONE (07:52)
[2024-04-28] MEDS: K and/or MAG REPLACEMENT MC SCH ×2 (08:00)
[2024-04-28] MEDS ORDERED: SPIR25TA5 PO (08:11)
[2024-04-28] MEDS ORDERED: ROSU40TA89 PO (08:11)
[2024-04-28] MEDS ORDERED: APIX5TAB3 PO (08:12)
[2024-04-28 10:31] LABS: ANION GAP 20 (8-16); BLOOD UREA NITROGEN 11 MG/DL (7-18); BUN/CREATININE RATIO 8.1 (10.0-20.0); CALCIUM 7.4 MG/DL (8.5-10.1); CHLORIDE 104 MMOL/L (99-107); CREATININE 1.36 MG/DL (0.60-1.10); GLUCOSE 97 MG/DL (70-104); PHOSPHORUS 1.7 MG/DL (2.3-4.5); POTASSIUM 3.9 MMOL/L (3.5-5.1); SODIUM 135 MMOL/L (135-145); eCRCL 89 ML/MIN; eGFR 58 ML/MIN
[2024-04-28 10:33] LABS: TOTAL CARBON DIOXIDE 10.7 MMOL/L (24-32)
[2024-04-28] MEDS: atorvastatin 20mg tablet PO SCH (10:39)
[2024-04-28] MEDS: apixaban 5mg tablet PO SCH (10:39)
[2024-04-28] MEDS: famotidine/PF 10 mg/ml inj IV SCH (10:40)
[2024-04-28] MEDS: dextrose 5%-1/2 normal saline 1,000 ML IV SCH (11:06)
[2024-04-28 14:38] LABS: ALBUMIN 2.9 G/DL (3.4-5.0); ANION GAP 17 (8-16); BLOOD UREA NITROGEN 9 MG/DL (7-18); BUN/CREATININE RATIO 6.9 (10.0-20.0); CALCIUM 7.6 MG/DL (8.5-10.1); CHLORIDE 104 MMOL/L (99-107); CREATININE 1.31 MG/DL (0.60-1.10); GLUCOSE 114 MG/DL (70-104); MAGNESIUM 2.2 MG/DL (1.5-2.4); POTASSIUM 3.6 MMOL/L (3.5-5.1); SODIUM 135 MMOL/L (135-145); eCRCL 92 ML/MIN; eGFR 61 ML/MIN
[2024-04-28 14:52] LABS: TOTAL CARBON DIOXIDE 13.8 MMOL/L (24-32)
[2024-04-28] MEDS: Neutra Phos packet PO PRN (15:28)
[2024-04-28 16:04] LABS: ABG BASE EXCESS -12.6 mmol/L (-2.0-3.0); ABG HCO3 11.6 mmol/L (21.0-28.0); ABG OXYGEN SATURATION 97.8 % (94.0-98.0); ABG PCO2 (T) 23.8 mmHg (35.0-48.0); ABG PH (T) 7.306 (7.350-7.450); ABG PO2 (T) 91.3 mmHg (83.0-108.0); ALLEN'S TEST POSITIVE; FCOHb 0.3 % (0.5-1.5); FHHb 2.2 % (0.0-5.0); FO2Hb 97.5 % (94.0-98.0); MODE ROOM AIR; PATIENT TEMPERATURE 36.8; TOTAL HEMOGLOBIN 15.3 G/dl (13.5-17.5)
[2024-04-28] MEDS: potassium CL 20mEq in D5-1/2NS 1,000 ML IV SCH (17:41)
[2024-04-28 18:22] LABS: ALBUMIN 2.9 G/DL (3.4-5.0); ANION GAP 14 (8-16); BLOOD UREA NITROGEN 7 MG/DL (7-18); BUN/CREATININE RATIO 4.7 (10.0-20.0); CALCIUM 7.2 MG/DL (8.5-10.1); CHLORIDE 105 MMOL/L (99-107); CREATININE 1.49 MG/DL (0.60-1.10); GLUCOSE 138 MG/DL (70-104); POTASSIUM 3.5 MMOL/L (3.5-5.1); SODIUM 135 MMOL/L (135-145); TOTAL CARBON DIOXIDE 16.3 MMOL/L (24-32); eCRCL 81 ML/MIN; eGFR 52 ML/MIN
[2024-04-28] MEDS: metoprolol tartrate 50mg tablet PO ONE (18:27)
[2024-04-28] MEDS ORDERED: glucagon, human recombinant 1mg kit SUBCUT PRN (18:30)
[2024-04-28] MEDS ORDERED: DEXTROSE 15 GM of carb/4 tabs (each vial/BOTTLE has 4 tablets) PO PRN ×2 (18:30)
[2024-04-28] MEDS: insulin glargine (Lantus) pen - multi-dose SQ SCH (20:00)
[2024-04-28] MEDS: INSULIN LISPRO 100 UNIT/ML INSULN.PEN MULTI-DOSE SQ SCH (21:00)
[2024-04-29] VITALS (26 sets, daily range): BP systolic 87–135; BP diastolic 54–84; PULSE 75–123; RESP 12–20; O2SAT 93–100
[2024-04-29 02:59] LABS: BASOPHILS % (AUTO) 0.4 % (0-1); EOSINOPHILS # (AUTO) 0.1 X10'3 (0-0.9); EOSINOPHILS % (AUTO) 0.9 % (0-6); HEMATOCRIT 42.1 % (42.0-52.0); HEMOGLOBIN 14.3 g/dl (14.0-17.9); LYMPHOCYTES # (AUTO) 1.2 X10'3 (1.1-4.8); LYMPHOCYTES % (AUTO) 16.7 % (21-51); MEAN CORPUSCULAR VOLUME 91.1 FL (78-98); MEAN PLATELET VOLUME 9.9 FL (7.4-10.4); MONOCYTES # (AUTO) 0.8 X10'3 (0-0.9); MONOCYTES % (AUTO) 10.9 % (2-12); NEUTROPHILS # (AUTO) 5.3 X10'3 (1.8-7.7); NEUTROPHILS % (AUTO) 71.1 % (42-75); PLATELET COUNT 129 X10'3 (140-440); RED BLOOD COUNT 4.62 X10'6 (4.70-6.10); RED CELL DISTRIBUTION WIDTH 12.8 % (11.5-14.5); WHITE BLOOD COUNT 7.4 X10'3 (4.5-11.0)
[2024-04-29 03:10] LABS: ALBUMIN 2.7 G/DL (3.4-5.0); ANION GAP 17 (8-16); BLOOD UREA NITROGEN 8 MG/DL (7-18); BUN/CREATININE RATIO 6.2 (10.0-20.0); CALCIUM 8.1 MG/DL (8.5-10.1); CHLORIDE 105 MMOL/L (99-107); GLUCOSE 218 MG/DL (70-104); MAGNESIUM 2.3 MG/DL (1.5-2.4); PHOSPHORUS 1.8 MG/DL (2.3-4.5); POTASSIUM 3.8 MMOL/L (3.5-5.1); SODIUM 137 MMOL/L (135-145); TOTAL CARBON DIOXIDE 15.5 MMOL/L (24-32); eCRCL 93 ML/MIN; eGFR 61 ML/MIN
[2024-04-29] MEDS: sodium phosphate inj. 15 MMOL in dextrose 5%-water 250 ML IV PRN (04:19)
[2024-04-29 04:33] LABS: PLATELET ESTIMATE DECREASED
[2024-04-29] MEDS ORDERED: Potassium Cl inj 20 MEQ in normal saline 1000ml 990 ML IV SCH (04:45)
[2024-04-29] MEDS: potassium Cl 20mEq in NS 1,000 ML IV SCH (05:08)
[2024-04-29] MEDS: dextrose 5%-1/2 normal saline 1,000 ML IV SCH (08:16)
[2024-04-29] MEDS: metoprolol tartrate 1mg/ml inj IV PRN (09:53)
[2024-04-29 13:23] LABS: ALBUMIN 3.1 G/DL (3.4-5.0); ANION GAP 12 (8-16); BLOOD UREA NITROGEN 4 MG/DL (7-18); BUN/CREATININE RATIO 3.1 (10.0-20.0); CALCIUM 8.6 MG/DL (8.5-10.1); CHLORIDE 106 MMOL/L (99-107); CREATININE 1.27 MG/DL (0.60-1.10); GLUCOSE 165 MG/DL (70-104); MAGNESIUM 2.2 MG/DL (1.5-2.4); POTASSIUM 3.2 MMOL/L (3.5-5.1); PRO BRAIN NATRIURETIC PEPTIDE 184 PG/ML (0-125); SODIUM 138 MMOL/L (135-145); TOTAL CARBON DIOXIDE 20.5 MMOL/L (24-32); eCRCL 95 ML/MIN; eGFR 63 ML/MIN
[2024-04-29 13:27] LABS: PHOSPHORUS 1.2 MG/DL (2.3-4.5)
[2024-04-29] MEDS: potassium Cl 40MEQ/1/2NS 520ml 520 ML IV PRN (13:58)
[2024-04-29] MEDS: sodium phosphate inj. 30 MMOL in dextrose 5%-water 250 ML IV PRN (13:58)
[2024-04-29] MEDS: potassium Cl 20 mEq SR tablet PO PRN (14:35)
[2024-04-29] MEDS: amiodarone 150mg/dext, iso-os 100 ML IV ONE (15:44)
[2024-04-29] MEDS: amiodarone 50MG/ML inj IV ONE (15:44)
[2024-04-29] MEDS: amiodarone/D5 360MG/200ML BAG 200 ML IV SCH (15:52)
[2024-04-29] MEDS: COMMUNICATION ORDER 1 EA MISC MC ONE (16:20)
[2024-04-29 16:26] LABS: ALBUMIN 2.8 G/DL (3.4-5.0); ANION GAP 10 (8-16); BLOOD UREA NITROGEN 5 MG/DL (7-18); BUN/CREATININE RATIO 3.8 (10.0-20.0); CALCIUM 8.4 MG/DL (8.5-10.1); CHLORIDE 105 MMOL/L (99-107); CREATININE 1.33 MG/DL (0.60-1.10); GLUCOSE 262 MG/DL (70-104); MAGNESIUM 2.1 MG/DL (1.5-2.4); PHOSPHORUS 2.1 MG/DL (2.3-4.5); POTASSIUM 3.1 MMOL/L (3.5-5.1); SODIUM 136 MMOL/L (135-145); TOTAL CARBON DIOXIDE 20.7 MMOL/L (24-32); eCRCL 91 ML/MIN; eGFR 60 ML/MIN
[2024-04-29 17:35] LABS: ACETONE SMALL (NEGATIVE)
[2024-04-30] VITALS (24 sets, daily range): BP systolic 101–141; BP diastolic 60–94; PULSE 77–101; RESP 12–21; O2SAT 91–100
[2024-04-30 00:43] LABS: EOSINOPHILS # (AUTO) 0.1 X10'3 (0-0.9); EOSINOPHILS % (AUTO) 2.6 % (0-6); HEMOGLOBIN 13.8 g/dl (14.0-17.9); LYMPHOCYTES # (AUTO) 1.6 X10'3 (1.1-4.8); LYMPHOCYTES % (AUTO) 33.1 % (21-51); MEAN CORPUSCULAR HEMOGLOBIN 30.9 PG (27.0-31.0); MEAN CORPUSCULAR HGB CONC 34.5 g/dL (33.0-36.5); MEAN CORPUSCULAR VOLUME 89.4 FL (78-98); MEAN PLATELET VOLUME 9.6 FL (7.4-10.4); MONOCYTES # (AUTO) 0.5 X10'3 (0-0.9); MONOCYTES % (AUTO) 11.1 % (2-12); NEUTROPHILS # (AUTO) 2.6 X10'3 (1.8-7.7); NEUTROPHILS % (AUTO) 52.2 % (42-75); PLATELET COUNT 108 X10'3 (140-440); RED BLOOD COUNT 4.47 X10'6 (4.70-6.10); RED CELL DISTRIBUTION WIDTH 12.7 % (11.5-14.5); WHITE BLOOD COUNT 4.9 X10'3 (4.5-11.0)
[2024-04-30 00:58] LABS: ALANINE AMINOTRANSFERASE 26 U/L (12-78); ALBUMIN 2.6 G/DL (3.4-5.0); ALKALINE PHOSPHATASE 51 IU/L (46-116); ANION GAP 7 (8-16); ASPARTATE AMINO TRANSFERASE 12 U/L (10-37); BILIRUBIN,TOTAL 0.4 MG/DL (0.1-1.0); BLOOD UREA NITROGEN 5 MG/DL (7-18); BUN/CREATININE RATIO 4.1 (10.0-20.0); CHLORIDE 109 MMOL/L (99-107); CREATININE 1.22 MG/DL (0.60-1.10); GLUCOSE 202 MG/DL (70-104); PHOSPHORUS 2.4 MG/DL (2.3-4.5); SODIUM 141 MMOL/L (135-145); TOTAL CARBON DIOXIDE 24.8 MMOL/L (24-32); TOTAL PROTEIN 5.3 G/DL (6.4-8.2); eCRCL 99 ML/MIN; eGFR 66 ML/MIN
[2024-04-30 01:04] LABS: POTASSIUM 2.9 MMOL/L (3.5-5.1)
[2024-04-30 01:06] LABS: ACETONE NEGATIVE (NEGATIVE)
[2024-04-30] MEDS: potassium Cl 20mEq/100mL bag 100 ML IV SCH (02:15)
[2024-04-30 08:25] LABS: ACETONE SMALL (NEGATIVE)
[2024-04-30 08:57] LABS: ALBUMIN 2.1 G/DL (3.4-5.0); ANION GAP 9 (8-16); BLOOD UREA NITROGEN 2 MG/DL (7-18); BUN/CREATININE RATIO 2.2 (10.0-20.0); CALCIUM 6.5 MG/DL (8.5-10.1); CHLORIDE 115 MMOL/L (99-107); CREATININE 0.89 MG/DL (0.60-1.10); GLUCOSE 154 MG/DL (70-104); MAGNESIUM 1.6 MG/DL (1.5-2.4); PHOSPHORUS 1.6 MG/DL (2.3-4.5); SODIUM 144 MMOL/L (135-145); TOTAL CARBON DIOXIDE 19.6 MMOL/L (24-32); eCRCL 135 ML/MIN; eGFR > 90 ML/MIN
[2024-04-30 09:07] LABS: POTASSIUM 2.8 MMOL/L (3.5-5.1)
[2024-04-30] MEDS: potassium Cl 20 mEq SR tablet PO PRN (09:11)
[2024-04-30] MEDS ORDERED: DEXTROSE 15 GM of carb/4 tabs (each vial/BOTTLE has 4 tablets) PO PRN (09:35)
[2024-04-30] MEDS: insulin regular, human U-100 10ml vial - multi-dose IV ONE (09:55)
[2024-04-30] MEDS: amiodarone 200mg tablet PO SCH (10:32)
[2024-04-30] MEDS: insulin glargine (Lantus) pen - multi-dose SQ ONE (10:34)
[2024-04-30] MEDS: INSULIN LISPRO 100 UNIT/ML INSULN.PEN MULTI-DOSE SQ SCH ×2 (12:00→21:00)
[2024-04-30] MEDS: INSULIN LISPRO 100 UNIT/ML INSULN.PEN MULTI-DOSE SQ ONE (13:01)
[2024-04-30 15:09] LABS: ALBUMIN 2.8 G/DL (3.4-5.0); ANION GAP 7 (8-16); BLOOD UREA NITROGEN 3 MG/DL (7-18); BUN/CREATININE RATIO 2.4 (10.0-20.0); CALCIUM 8.3 MG/DL (8.5-10.1); CHLORIDE 107 MMOL/L (99-107); CREATININE 1.26 MG/DL (0.60-1.10); GLUCOSE 243 MG/DL (70-104); POTASSIUM 3.8 MMOL/L (3.5-5.1); SODIUM 139 MMOL/L (135-145); eCRCL 96 ML/MIN; eGFR 63 ML/MIN
[2024-04-30 15:40] LABS: PHOSPHORUS 2.5 MG/DL (2.3-4.5)
[2024-04-30] MEDS: insulin glargine (Lantus) pen - multi-dose SQ SCH (20:04)
[2024-04-30 21:33] LABS: ALBUMIN 2.7 G/DL (3.4-5.0); ANION GAP 7 (8-16); BLOOD UREA NITROGEN 6 MG/DL (7-18); BUN/CREATININE RATIO 5.3 (10.0-20.0); CALCIUM 8.3 MG/DL (8.5-10.1); CHLORIDE 106 MMOL/L (99-107); CREATININE 1.13 MG/DL (0.60-1.10); GLUCOSE 260 MG/DL (70-104); POTASSIUM 3.7 MMOL/L (3.5-5.1); SODIUM 139 MMOL/L (135-145); TOTAL CARBON DIOXIDE 26.3 MMOL/L (24-32); eCRCL 107 ML/MIN; eGFR 72 ML/MIN
[2024-04-30 21:43] LABS: ACETONE NEGATIVE (NEGATIVE)
[2024-05-01] VITALS (24 sets, daily range): BP systolic 107–153; BP diastolic 64–107; PULSE 71–98; RESP 11–22; O2SAT 92–98
[2024-05-01 02:17] LABS: BASOPHILS % (AUTO) 0.9 % (0-1); EOSINOPHILS # (AUTO) 0.3 X10'3 (0-0.9); EOSINOPHILS % (AUTO) 4.9 % (0-6); HEMATOCRIT 40.2 % (42.0-52.0); HEMOGLOBIN 13.8 g/dl (14.0-17.9); LYMPHOCYTES # (AUTO) 1.8 X10'3 (1.1-4.8); LYMPHOCYTES % (AUTO) 33.9 % (21-51); MEAN CORPUSCULAR HEMOGLOBIN 31.2 PG (27.0-31.0); MEAN CORPUSCULAR HGB CONC 34.2 g/dL (33.0-36.5); MEAN CORPUSCULAR VOLUME 91.2 FL (78-98); MEAN PLATELET VOLUME 9.3 FL (7.4-10.4); MONOCYTES # (AUTO) 0.6 X10'3 (0-0.9); MONOCYTES % (AUTO) 10.5 % (2-12); NEUTROPHILS # (AUTO) 2.7 X10'3 (1.8-7.7); NEUTROPHILS % (AUTO) 49.8 % (42-75); PLATELET COUNT 105 X10'3 (140-440); RED CELL DISTRIBUTION WIDTH 12.7 % (11.5-14.5); WHITE BLOOD COUNT 5.4 X10'3 (4.5-11.0)
[2024-05-01 02:20] LABS: MAGNESIUM 1.8 MG/DL (1.5-2.4)
[2024-05-01 07:11] LABS: ALANINE AMINOTRANSFERASE 40 U/L (12-78); ALBUMIN 2.7 G/DL (3.4-5.0); ALKALINE PHOSPHATASE 56 IU/L (46-116); ANION GAP 10 (8-16); ASPARTATE AMINO TRANSFERASE 26 U/L (10-37); BILIRUBIN,TOTAL 0.6 MG/DL (0.1-1.0); BLOOD UREA NITROGEN 4 MG/DL (7-18); BUN/CREATININE RATIO 4.1 (10.0-20.0); CALCIUM 8.3 MG/DL (8.5-10.1); CHLORIDE 108 MMOL/L (99-107); CREATININE 0.98 MG/DL (0.60-1.10); GLUCOSE 200 MG/DL (70-104); POTASSIUM 3.7 MMOL/L (3.5-5.1); SODIUM 143 MMOL/L (135-145); TOTAL PROTEIN 5.4 G/DL (6.4-8.2); eCRCL 123 ML/MIN; eGFR 85 ML/MIN
[2024-05-01] MEDS ORDERED: INSULIN LISPRO 100 UNIT/ML INSULN.PEN MULTI-DOSE SQ ONE (12:00)
[2024-05-01] MEDS: INSULIN LISPRO 100 UNIT/ML INSULN.PEN MULTI-DOSE SQ SCH (12:09)
[2024-05-02] VITALS (11 sets, daily range): BP systolic 111–148; BP diastolic 74–94; PULSE 67–92; RESP 11–22; O2SAT 93–97
[2024-05-02 05:03] LABS: EOSINOPHILS # (AUTO) 0.2 X10'3 (0-0.9); EOSINOPHILS % (AUTO) 4.6 % (0-6); HEMATOCRIT 42.5 % (42.0-52.0); HEMOGLOBIN 14.6 g/dl (14.0-17.9); LYMPHOCYTES # (AUTO) 1.3 X10'3 (1.1-4.8); MEAN CORPUSCULAR HEMOGLOBIN 31.1 PG (27.0-31.0); MEAN CORPUSCULAR HGB CONC 34.4 g/dL (33.0-36.5); MEAN CORPUSCULAR VOLUME 90.4 FL (78-98); MEAN PLATELET VOLUME 9.5 FL (7.4-10.4); MONOCYTES # (AUTO) 0.5 X10'3 (0-0.9); MONOCYTES % (AUTO) 10.1 % (2-12); NEUTROPHILS # (AUTO) 2.7 X10'3 (1.8-7.7); NEUTROPHILS % (AUTO) 57.3 % (42-75); PLATELET COUNT 124 X10'3 (140-440); RED CELL DISTRIBUTION WIDTH 13.1 % (11.5-14.5); WHITE BLOOD COUNT 4.7 X10'3 (4.5-11.0)
[2024-05-02 05:08] LABS: MAGNESIUM 1.7 MG/DL (1.5-2.4)
[2024-05-02 08:15] LABS: ALANINE AMINOTRANSFERASE 42 U/L (12-78); ALBUMIN 2.9 G/DL (3.4-5.0); ALKALINE PHOSPHATASE 52 IU/L (46-116); ANION GAP 9 (8-16); ASPARTATE AMINO TRANSFERASE 25 U/L (10-37); BILIRUBIN,TOTAL 0.7 MG/DL (0.1-1.0); BLOOD UREA NITROGEN 6 MG/DL (7-18); BUN/CREATININE RATIO 6.8 (10.0-20.0); CALCIUM 8.5 MG/DL (8.5-10.1); CHLORIDE 104 MMOL/L (99-107); CREATININE 0.88 MG/DL (0.60-1.10); GLUCOSE 219 MG/DL (70-104); PHOSPHORUS 3.5 MG/DL (2.3-4.5); POTASSIUM 3.8 MMOL/L (3.5-5.1); SODIUM 141 MMOL/L (135-145); TOTAL CARBON DIOXIDE 27.7 MMOL/L (24-32); TOTAL PROTEIN 5.9 G/DL (6.4-8.2); eCRCL 137 ML/MIN; eGFR > 90 ML/MIN
[2024-05-02] MEDS ORDERED: insulin glargine (Lantus) pen - multi-dose SQ ONE (10:40)
[2024-05-02] MEDS ORDERED: EMPA10TA PO (11:07)
[2024-05-02] MEDS ORDERED: LISI5TAB22 PO (11:07)
[2024-05-02] MEDS ORDERED: AMIO400T5 PO (12:14)
[2024-05-02] MEDS ORDERED: insulin glargine (Lantus) pen - multi-dose SQ SCH (20:00)
== END 2024-05-02 12:50 | disposition home or self-care (01) | DRG 637 ==
LOC: ER 20:17 → ED HOLD 04-28 01:54 → EDBEDREQ 04-28 03:19 → CICU 2S 04-28 04:20
PROVIDERS: ADMIT Internal Medicine Critical Care Medicine; ATTEND Nurse Practitioner Family
PROC: 02HV33Z Insertion of Infusion Device into Superior Vena Cava, Percutaneous Approach (ICD-10-PCS; principal; 2024-04-28)
PROC: B548ZZA Ultrasonography of Superior Vena Cava, Guidance (ICD-10-PCS; 2024-04-28)
DX: E11.10 Type 2 diabetes mellitus with ketoacidosis without coma (principal); I50.23 Acute on chronic systolic (congestive) heart failure; N17.9 Acute kidney failure, unspecified; I48.91 Unspecified atrial fibrillation; E78.5 Hyperlipidemia, unspecified; I25.10 Atherosclerotic heart disease of native coronary artery without angina pectoris; E87.6 Hypokalemia; E86.0 Dehydration; T50.995A Adverse effect of other drugs, medicaments and biological substances, initial encounter; Z82.49 Family history of ischemic heart disease and other diseases of the circulatory system; Z88.0 Allergy status to penicillin; Z79.01 Long term (current) use of anticoagulants; Z79.899 Other long term (current) drug therapy; Z79.4 Long term (current) use of insulin; Y92.89 Other specified places as the place of occurrence of the external cause
CPT/HCPCS: 36415; 36600; 71045; 80048; 80053; 80320; 81001; 81002; 82009; 82800; 82803; 82948; 83605; 83735; 83880; 84100; 84443; 84484; 85008; 85018; 85025; 87081; 93005; 99291; A4333; A6213; A6258; A6449; C1751; G0378; J0282; J1815; J2060; J2270; J3480; J3490; J7030; J7040; J7042; J7060; J7070; J7120

== ENCOUNTER 2024-06-05 08:18 | Outpatient (CLI) | payer BC ==
[~2024-06-05 08:18] MED LIST changes: +AMIO400T5 PO; -EMPA10TA PO; +LISI5TAB22 PO; +METO-384 PO; -METO-395 PO; -ROSU40TA PO; +ROSU40TA89 PO; -SPIR25TA PO; +SPIR25TA5 PO
== END 2024-06-05 23:59 | disposition home or self-care (01) ==
LOC: CARD DIAG 08:18
PROVIDERS: ATTEND Internal Medicine Cardiovascular Disease
DX: I08.8 Other rheumatic multiple valve diseases (principal); I50.22 Chronic systolic (congestive) heart failure; R06.00 Dyspnea, unspecified; I25.10 Atherosclerotic heart disease of native coronary artery without angina pectoris; I42.8 Other cardiomyopathies
CPT/HCPCS: 93306

== ENCOUNTER 2024-06-14 07:18 | Outpatient (CLI) | payer BC ==
[2024-06-14 08:05] LABS: ALANINE AMINOTRANSFERASE 35 U/L (12-78); ALBUMIN 3.5 G/DL (3.4-5.0); ALKALINE PHOSPHATASE 75 IU/L (46-116); ANION GAP 9 (8-16); ASPARTATE AMINO TRANSFERASE 22 U/L (10-37); BILIRUBIN,TOTAL 0.6 MG/DL (0.1-1.0); BLOOD UREA NITROGEN 27 MG/DL (7-18); BUN/CREATININE RATIO 24.3 (10.0-20.0); CALCIUM 9.1 MG/DL (8.5-10.1); CHLORIDE 102 MMOL/L (99-107); CREATININE 1.11 MG/DL (0.60-1.10); GLUCOSE 112 MG/DL (70-104); POTASSIUM 4.2 MMOL/L (3.5-5.1); SODIUM 135 MMOL/L (135-145); TOTAL CARBON DIOXIDE 24.1 MMOL/L (24-32); TOTAL PROTEIN 6.9 G/DL (6.4-8.2); eGFR 73 ML/MIN
[2024-06-14 08:06] LABS: CHOL/HDL RATIO 2.1 (0.00-4.99); CHOLESTEROL 143 MG/DL (0-200); HDL CHOLESTEROL 67 MG/DL (35-60); LDL CHOLESTEROL 59 MG/DL (50-100); TRIGLYCERIDES 142 MG/DL (20-135)
== END 2024-06-14 23:59 | disposition home or self-care (01) ==
LOC: LAB 07:18
PROVIDERS: ATTEND Nurse Practitioner Family
DX: I11.9 Hypertensive heart disease without heart failure (principal); E10.65 Type 1 diabetes mellitus with hyperglycemia
CPT/HCPCS: 36415; 80053; 80061; 82043; 83036

== ENCOUNTER 2024-08-06 04:25 | Emergency (ER) | payer BC ==
[~2024-08-06] VITALS: Ht 193 cm; Wt 181.5 kg
[2024-08-06] MEDS: metoprolol tartrate 1mg/ml inj IV SCH (04:52)
[2024-08-06] MEDS: magnesium sulf-water 2g/50mL 50 ML IV ONE (04:53)
[2024-08-06] MEDS: amiodarone 150mg/dext, iso-os 100 ML IV ONE (04:54)
[2024-08-06 05:04] LABS: BASOPHILS # (AUTO) 0.1 X10'3 (0-0.2); BASOPHILS % (AUTO) 1.1 % (0-1); EOSINOPHILS # (AUTO) 0.1 X10'3 (0-0.9); EOSINOPHILS % (AUTO) 0.6 % (0-6); HEMATOCRIT 45.9 % (42.0-52.0); HEMOGLOBIN 15.3 g/dl (14.0-17.9); LYMPHOCYTES # (AUTO) 2.6 X10'3 (1.1-4.8); LYMPHOCYTES % (AUTO) 28.7 % (21-51); MEAN CORPUSCULAR HEMOGLOBIN 30.8 PG (27.0-31.0); MEAN CORPUSCULAR HGB CONC 33.4 g/dL (33.0-36.5); MEAN CORPUSCULAR VOLUME 92.3 FL (78-98); MEAN PLATELET VOLUME 8.4 FL (7.4-10.4); MONOCYTES # (AUTO) 0.9 X10'3 (0-0.9); MONOCYTES % (AUTO) 10.1 % (2-12); NEUTROPHILS # (AUTO) 5.4 X10'3 (1.8-7.7); NEUTROPHILS % (AUTO) 59.5 % (42-75); PLATELET COUNT 224 X10'3 (140-440); RED BLOOD COUNT 4.98 X10'6 (4.70-6.10); RED CELL DISTRIBUTION WIDTH 14.2 % (11.5-14.5); WHITE BLOOD COUNT 9.1 X10'3 (4.5-11.0)
[2024-08-06 05:22] LABS: ALANINE AMINOTRANSFERASE 70 U/L (12-78); ALBUMIN 3.4 G/DL (3.4-5.0); ALBUMIN/GLOBULIN RATIO 0.9 (1.1-1.5); ALKALINE PHOSPHATASE 99 IU/L (46-116); ANION GAP 11 (8-16); ASPARTATE AMINO TRANSFERASE 63 U/L (10-37); BILIRUBIN,TOTAL 0.3 MG/DL (0.1-1.0); BLOOD UREA NITROGEN 17 MG/DL (7-18); BUN/CREATININE RATIO 16.2 (10.0-20.0); CALCIUM 8.7 MG/DL (8.5-10.1); CHLORIDE 102 MMOL/L (99-107); CREATININE 1.05 MG/DL (0.60-1.10); GLUCOSE 184 MG/DL (70-104); POTASSIUM 4.4 MMOL/L (3.5-5.1); SODIUM 137 MMOL/L (135-145); TOTAL CARBON DIOXIDE 24.1 MMOL/L (24-32); TOTAL PROTEIN 7.2 G/DL (6.4-8.2); eCRCL 115 ML/MIN; eGFR 78 ML/MIN
[2024-08-06 05:29] LABS: PRO BRAIN NATRIURETIC PEPTIDE 407 PG/ML (0-125)
[2024-08-06] MEDS: diltiazem 5mg/ml 5ml inj. IV ONE (05:36)
[2024-08-06] MEDS: LORazepam 2 mg/ml vial IV ONE (07:21)
[2024-08-06] MEDS: etomidate 2mg/ml inj. IV ONE (07:21)
[2024-08-06 09:08] VITALS: BP 141/90; PULSE 79; RESP 14; TEMP 98.1; O2SAT 99
== END 2024-08-06 09:12 | disposition home or self-care (01) ==
LOC: ER 04:26
DX: I48.20 Chronic atrial fibrillation, unspecified (principal); E11.9 Type 2 diabetes mellitus without complications; I25.10 Atherosclerotic heart disease of native coronary artery without angina pectoris; I48.91 Unspecified atrial fibrillation; Z88.0 Allergy status to penicillin; Z88.8 Allergy status to other drugs, medicaments and biological substances
CPT/HCPCS: 36415; 71045; 80053; 83880; 84484; 85025; 92960; 93005; 96365; 96375; 99291; J0282; J2060; J3490; J7030; 96368; 99285; A4620

== ENCOUNTER 2024-09-13 09:46 | Outpatient (CLI) | payer BC ==
[2024-09-13 10:58] LABS: ALANINE AMINOTRANSFERASE 82 U/L (12-78); ALBUMIN 3.6 G/DL (3.4-5.0); ALKALINE PHOSPHATASE 71 IU/L (46-116); ANION GAP 10 (8-16); ASPARTATE AMINO TRANSFERASE 56 U/L (10-37); BILIRUBIN,TOTAL 0.4 MG/DL (0.1-1.0); BLOOD UREA NITROGEN 12 MG/DL (7-18); BUN/CREATININE RATIO 11.3 (10.0-20.0); CALCIUM 8.5 MG/DL (8.5-10.1); CHLORIDE 105 MMOL/L (99-107); CREATININE 1.06 MG/DL (0.60-1.10); GLUCOSE 140 MG/DL (70-104); POTASSIUM 4.6 MMOL/L (3.5-5.1); SODIUM 140 MMOL/L (135-145); TOTAL PROTEIN 7.1 G/DL (6.4-8.2); eGFR 77 ML/MIN
[2024-09-13 11:26] LABS: HEMOGLOBIN A1C 7.1 % (4.5-6.2)
== END 2024-09-13 23:59 | disposition home or self-care (01) ==
LOC: RAD 09:46
PROVIDERS: ATTEND Nurse Practitioner Family
DX: E10.65 Type 1 diabetes mellitus with hyperglycemia (principal); E83.52 Hypercalcemia
CPT/HCPCS: 36415; 80053; 82306; 83036

== ENCOUNTER 2024-09-28 19:00 | Emergency (ER) | payer BC ==
[2024-09-28 19:16] VITALS: BP 115/87; PULSE 96; O2SAT 96
[2024-09-28 19:39] VITALS: RESP 18
[2024-09-28] MEDS: HYDROcodone/acetaminophen 5mg/325mg tablet PO STA (19:39)
[2024-09-28] MEDS: HYDROcodone/acetaminophen 5mg/325mg tablet PO ONE (22:00)
--- NOTE | 2024-09-28 22:42 | Physician Documentation ---
History of Present Illness ~ Chief Complaint: Ankle pain Stated Complaint: ROLLED ANKEL Time Seen by MD: 20:25 Primary Medical Doctor: Ruiz CUNNINGHAM Patient is seen today with complaints of significant pain in his left ankle after rolling it just prior to arrival. Patient states that his ankle did dislocate and then he was able to reduce it on his own. Patient states he is unable to bear weight due to pain. Patient denies any other injury or pain of any other extremity or joint. Patient has no other concern or complaint at this time. Tetanus witin 5 years: Yes Medication Reconciliation Allergies: Coded Allergies: Penicillins (Verified Allergy, Unknown, 09/28/24) empagliflozin (Verified Allergy, Unknown, PUT PT IN DKA, 09/28/24) Scheduled Amiodarone HCl (Amiodarone HCl), 1 TAB PO BID Apixaban (Eliquis), 1 TAB PO Q12H, (Reported) Cholecalciferol (Vitamin D), 50,000 UNITS PO DAILY, (Reported) Insulin Glargine,Hum.rec.anlog (Toujeo Solostar), 40 UNITS SQ DAILY, (Reported) Insulin Lispro* (Humalog*), 1 UNIT SQ SLIDING SCALE, (Reported) Lisinopril (Lisinopril), 1 TAB PO DAILY Metoprolol Succinate (Metoprolol Succinate), 1 TAB PO DAILY, (Reported) Multivitamin (Multi Vitamin Daily), 1 EACH PO DAILY, (Reported) Rosuvastatin Calcium (Rosuvastatin Calcium), 1 TAB PO DAILY, (Reported) Spironolactone (Spironolactone), 1 TAB PO DAILY, (Reported) Past Medical History Past Medical History: Atrial Fibrillation, Diabetes, MRSA Abscess Past Surgical History: no surgical history Patient History: (CAD) Coronary arteriosclerosis MOTHER, Onset:30's - 40 (DM Type 2) Diabetes mellitus type 2 MOTHER (DM Type1) Diabetes mellitus type 1 FATHER Alcohol Use: Occasionally Drug Use: none Lives with: Family Lives In: Home Occupation: employed Review of Systems Constitutional: Denies: chills, fever, weakness Eyes: Denies: pain, blurred vision ENT: Denies: ear pain, nose pain, throat pain, mouth pain Respiratory: Denies: cough, shortness of breath Cardiovascular: Denies: chest pain, palpitations Gastrointestinal: Denies: abdominal pain, nausea, vomiting Genitourinary: Denies: burning, dysuria Male Genitalia: Denies: penile discharge, testicular pain Neurological: Denies: headache, dizziness Musculoskeletal: Denies: pain, swelling Integumentary: Denies: rash, lesions Allergic/Immunologic: Denies: hives, itching Hematologic/Lymphatic: Denies: no symptoms reported Psychiatric: Denies: depression, anxiety Physical Exam Vital Signs: Temperature: 97.1, Source: Oral, Heart Rate: 96, Respiratory Rate: 18, BP: 115/87, Pulse Oximetry: 96 Oxygen Flow Rate: 0 Physical Exam General: Awake and Alert, no acute distress. HEENT: Conjunctiva pink, Sclera clear, Mucus Membranes moist. Neck: Supple without masses and tenderness. Resp: Unlabored. Lungs clear to auscultation bilaterally. Heart: Regular Rate and rhythm, normal S1 and S2 without murmur, rub or gallop. Musculoskeletal: Patient on exam has significant swelling and edema of the left lateral ankle with significant tenderness to palpation of the distal left lateral malleoli with ecchymosis and decreased range of motion due to pain. Patient is unable to bear weight due to pain. Extremities: No cyanosis,clubbing or edema. Skin: Warm and Dry. Progress Results/Orders Results/Orders Completed Orders - JUAN ANGEL Hydrocodone/Apap 5/325mg Tab (Rogers 5/32 (09/28/24 21:55) Medications Received in ER Medications (Trade) Dose Ordered Sig/Luz Route PRN Reason Start Time Stop Time Status Last Admin Dose Admin (Rogers 5/325mg tablet) 1 tab ONCE STAT PO 09/28/24 19:21 09/28/24 19:23 DC 09/28/24 19:39 1 TAB (Rogers 5/325mg tablet) 1 tab ONCE ONCE PO 09/28/24 21:55 09/28/24 21:56 DC 09/28/24 22:00 1 TAB Vital Signs 09/28/24 09/28/24 19:16 19:39 Temp 97.1 Pulse 96 Resp 18 18 B/P (MAP) 115/87 Pulse Ox 96 O2 Flow Rate 0 EKG/XRAY/CT/US/VASC/MRI Bone/Soft Tissue X-Ray (Ext.) : Additional Comment X-ray of left ankle interpreted by myself today shows no sign of acute fracture of the distal tibia, distal fibula does have some irregularity however no definitive fracture is visualized. Occult fracture can not be ruled out. DIAGNOSTIC RADIOLOGY Patient: JARRETT VIVAS Medical Record: [id number] [facility] : 1985, Age: 39 Sex: Male Location: ER Patient Status: [facility] ER Service Date/Time: 09/28/241920 Ordering Physician: TAMMY LOPEZ MD Exam: ANKLE, COMPLETE(3VW MIN) Clinical History ANKLE PAIN Comparison None Technique: Three radiographs were submitted for review. Without Contrast JARRETT VIVAS, [id number] FINDINGS:/IMPRESSION: Extensive soft tissues welling over the lateral ankle. Distal tibia appears to be intact. Although no distal fibular fracture can be clearly identified, suspect occult fracture. This report was electronically signed by Prince Amezcua MD on 09/28/2024 11:26:18 PM. Electronically Signed by:PRINCE AMEZCUA MD Date & Time: 09/28/242329 Dictated by: PRINCE AMEZCUA MD Dictation date and time: 09/28/242329 Primary Care Provider: NO PRIMARY CARE PROVIDER cc: TAMMY LOPEZ MD ~ Medical Decision Making Findings Patient is seen today with complaints of significant pain in his left ankle after rolling it just prior to arrival. Patient states he is unable to bear weight due to pain. Patient denies any other injury or pain of any other extremity or joint. Patient has no other concern or complaint at this time. Patient did have x-ray of the left ankle which did not show any sign of definitive acute fracture. Patient will have left ankle re-x-ray aid in 7-10 days. Patient will follow up with Orthopedics afterwards. Patient will be placed in walking boot and given crutches to assist with ambulation. Patient was given Rogers 5/325 shortly after being triaged and patient was given a 2nd dose 90 minutes later, with decent relief of pain. Departure Disposition: HOME / SELF CARE / HOMELESS Impression: Primary Impression: Sprain of ankle Qualified Codes: S93.402A - Sprain of unspecified ligament of left ankle, initial encounter Condition: Improved Discharge Instructions: Ankle Sprain Additional Instructions: Patient did have x-ray of the left ankle which did not show any sign of definitive acute fracture. Patient will have left ankle re-x-ray aid in 7-10 days. Patient will follow up with Orthopedics afterwards. Patient will be placed in walking boot and given crutches to assist with ambulation. Patient was given Rogers 5/325 shortly after being triaged and patient was given a 2nd dose 90 minutes later, with decent relief of pain. Patient was given prescription of Rogers 10/325 mg one tab 4 times a day for five days 20. Sent to [facility]. Referrals: NO PRIMARY CARE PROVIDER (PCP) Prescriptions Hydrocodone Bit/Acetaminophen (Hydrocodone-Apap 10-325 Tablet) 10mg/325mg Tablet 1 TAB PO QID PRN PRN for pain for 5 Days, #20 TAB Prov: JUAN ANGEL 09/28/24 Signature Scribe Signature: No scribe Attestation: No scribe JUAN ANGEL PAC September 28, 2024 22:42
--- NOTE | 2024-09-28 23:30 | RADIOLOGY REPORT ---
Clinical History ANKLE PAIN Comparison None Technique: Three radiographs were submitted for review. Without Contrast ORTEGAJARRETT, [id number] FINDINGS:/IMPRESSION: Extensive soft tissues welling over the lateral ankle. Distal tibia appears to be intact. Although no distal fibular fracture can be clearly identified, suspect occult fracture. This report was electronically signed by James Franz MD on 09/28/2024 11:26:18 PM.
[2024-09-28] MEDS ORDERED: HYDR-3973 PO (23:41)
[2024-09-28 23:47] VITALS: TEMP 97.1
== END 2024-09-28 23:50 | disposition home or self-care (01) ==
LOC: ER 19:01
DX: S93.492A Sprain of other ligament of left ankle, initial encounter (principal); I25.10 Atherosclerotic heart disease of native coronary artery without angina pectoris; E11.9 Type 2 diabetes mellitus without complications; I48.91 Unspecified atrial fibrillation; Z88.0 Allergy status to penicillin; Z88.8 Allergy status to other drugs, medicaments and biological substances; Z79.4 Long term (current) use of insulin; Z79.899 Other long term (current) drug therapy; Z72.89 Other problems related to lifestyle; X50.1XXA Overexertion from prolonged static or awkward postures, initial encounter; Y93.89 Activity, other specified; Y92.89 Other specified places as the place of occurrence of the external cause; Y99.8 Other external cause status
CPT/HCPCS: 73610; 99284

== ENCOUNTER 2024-10-03 12:54 | Emergency (ER) | payer BC ==
[~2024-10-03] VITALS: Ht 193 cm; Wt 170.4 kg
[~2024-10-03 12:54] MED LIST changes: +HYDR-3973 PO
[2024-10-03 13:02] VITALS: BP 148/93; TEMP 98.5
--- NOTE | 2024-10-03 13:30 | RADIOLOGY REPORT ---
EXAM: DI ANKLE, COMPLETE(3VW MIN) HISTORY: ANKLE PAIN COMPARISON: DI ANKLE, COMPLETE(3VW MIN) on DOS: 09/28/24 TECHNIQUE: Three views of the left ankle were performed. FINDINGS/IMPRESSION: 1. Minimally displaced fracture of the left distal fibular metaphysis, timing unknown. This fracture may be acute, subacute, or chronic. There is overlying soft tissue swelling. 2. Small irregular calcification of the distal tip of the left distal fibula may be due to acute or c hronic avulsion fracture or sequelae of old ligamentous injury. 3. Os trigonum and os supranaviculare incidentally noted.
[2024-10-03] MEDS: HYDROcodone/acetaminophen 5mg/325mg tablet PO ONE ×2 (15:15→16:36)
--- NOTE | 2024-10-03 16:13 | Physician Documentation ---
History of Present Illness ~ Chief Complaint: Ankle pain Stated Complaint: ANKLE PAIN Time Seen by MD: 14:53 Primary Medical Doctor: Ruiz CUNNINGHAM This 39-year-old male presents back to the emergency department for re- evaluation of left ankle pain, patient reports that approximately five days ago he rolled his ankle was seen in the emergency department at that time the swelling to his ankle was significant enough that fracture to the ankle could not be confirmed on x-ray, on returned today patient reports continued pain. Patient presents in a walking boot and has been nonweightbearing on crutches. Tetanus witin 5 years: Yes Medication Reconciliation Allergies: Coded Allergies: Penicillins (Verified Allergy, Unknown, 10/03/24) empagliflozin (Verified Allergy, Unknown, PUT PT IN DKA, 10/03/24) Scheduled Amiodarone HCl (Amiodarone HCl), 1 TAB PO BID Apixaban (Eliquis), 1 TAB PO Q12H, (Reported) Cholecalciferol (Vitamin D), 50,000 UNITS PO DAILY, (Reported) Insulin Glargine,Hum.rec.anlog (Toujeo Solostar), 40 UNITS SQ DAILY, (Reported) Insulin Lispro* (Humalog*), 1 UNIT SQ SLIDING SCALE, (Reported) Lisinopril (Lisinopril), 1 TAB PO DAILY Metoprolol Succinate (Metoprolol Succinate), 1 TAB PO DAILY, (Reported) Multivitamin (Multi Vitamin Daily), 1 EACH PO DAILY, (Reported) Naloxone HCl (Narcan), 1 SPRAYS BOTHNARES ONCE Rosuvastatin Calcium (Rosuvastatin Calcium), 1 TAB PO DAILY, (Reported) Spironolactone (Spironolactone), 1 TAB PO DAILY, (Reported) Scheduled PRN Hydrocodone Bit/Acetaminophen (Hydrocodon-Acetaminophn 10-325 tablet), 1 TAB PO QID PRN PRN for pain Discontinued Medications Hydrocodone Bit/Acetaminophen (Hydrocodone-Apap 10-325 Tablet), 1 TAB PO QID PRN PRN for pain Discontinued Reason: Auto Discontinued Past Medical History Past Medical History: Atrial Fibrillation, Diabetes, MRSA Abscess Past Surgical History: no surgical history Patient History: (CAD) Coronary arteriosclerosis MOTHER, Onset:30's - 40 (DM Type 2) Diabetes mellitus type 2 MOTHER (DM Type1) Diabetes mellitus type 1 FATHER Alcohol Use: Occasionally Drug Use: none Lives with: Family Lives In: Home Occupation: employed Review of Systems ROS Left ankle pain as stated above in the HPI, otherwise all systems are reviewed and negative. Physical Exam Vital Signs: Temperature: 98.5, Heart Rate: 121, Respiratory Rate: 18, BP: 148/93, Pulse Oximetry: 97, Weight: 170.450 Physical Exam VITALS: Reviewed and as above. GENERAL: Alert, nontoxic appearing, no apparent distress. RESPIRATORY: No increased work of breathing, no respiratory distress, speaking in full clear sentences MUSCULOSKELETAL: Mild swelling left foot and ankle, moderate ecchymosis to dorsal foot and ankle, brisk capillary refill to toes, pedal pulse intact, dorsal aspect of the foot minimally tender, ankle tender to palpation Progress Results/Orders Results/Orders Completed Orders - KULWINDER THOMSON [employer]GER Hydrocodone/Apap 5/325mg Tab ([place] 5/32 (10/03/24 15:05) Hydrocodone/Apap 5/325mg Tab ([place] 5/32 (10/03/24 16:05) Vital Signs 10/03/24 10/03/24 10/03/24 10/03/24 13:02 15:15 16:36 16:38 Temp 98.5 Pulse 121 115 Resp 18 18 17 19 B/P (MAP) 148/93 Pulse Ox 97 98 EKG/XRAY/CT/US/VASC/MRI Bone/Soft Tissue X-Ray (Ext.) : Additional Comment EXAM: DI ANKLE, COMPLETE(3VW MIN) HISTORY: ANKLE PAIN COMPARISON: DI ANKLE, COMPLETE(3VW MIN) on DOS: 09/28/24 TECHNIQUE: Three views of the left ankle were performed. FINDINGS/IMPRESSION: 1. Minimally displaced fracture of the left distal fibular metaphysis, timing unknown. This fracture may be acute, subacute, or chronic. There is overlying soft tissue swelling. 2. Small irregular calcification of the distal tip of the left distal fibula may be due to acute or chronic avulsion fracture or sequelae of old ligamentous injury. 3. Os trigonum and os supranaviculare incidentally noted. Electronically Signed by:PRINCE ZHOU MD Date & Time: 10/03/24 1327 Dictated by: PRINCE ZHOU MD Dictation date and time: 10/03/24 1310 I have reviewed and agree with the radiology report. I have reviewed and interpreted the imaging as: Medical Decision Making Findings This 39-year-old male presents to the emergency department for re-evaluation of left ankle pain after being seen approximately five days prior for the same to rolling his ankle, physical exam was significant for swelling and ecchymosis to the left foot and ankle, repeat x-ray of the left ankle demonstrated minimally displaced fracture of the left distal fibular metaphysis, and small irregular calcification of the distal tip of the left distal fibula, which will require patient remain nonweightbearing and to follow up with Orthopedics for further evaluation and management. Patient medicated for pain in the department and provided a prescription for short course of [place] for breakthrough pain, patient advised to use on opioid medications 1st. It was reassuring the foot is neurovascularly intact and patient is already in a walking boot and provided crutches. Remainder of physical exam was benign and patient was appropriate for outpatient follow up. I have discussed with the patient the risks of addiction and overdose associated with use of opioids, including the increased risk of addiction to an opioid for an individual who is suffering from both mental and substance abuse disorders. I have discussed with the patient the danger of taking an opioid with a benzodiazepine, alcohol, or another central nervous system depressant. Ankle Diff Dx:Considerations: Include: Arthritis, Contusion, DJD, Fracture- tarsal, Hematoma, Laceration, Neurovascular injury, Osteomyelitis, Rheumatoid arthritis, Sprain, Septic, Other Departure Time of Disposition: 16:12 Disposition: 01 HOME / SELF CARE / HOMELESS Impression: Primary Impression: Ankle fracture Qualified Codes: S82.892A - Other fracture of left lower leg, initial encounter for closed fracture Condition: Improved Discharge Instructions: Ankle Fracture Additional Instructions: Follow up tomorrow morning with the orthopedist at the number provided and also contact your primary care provider for follow up. Stay off of the ankle until evaluated by the orthopedist. Please take the pain medication as prescribed. Please return to the emergency department for any new or worsening concerning symptoms including but not limited to increasing pain the area or numbness or tingling to your foot. You have been prescribed an opioid medication, there are risks of addiction and overdose associated with the use of opioids. The risk of addiction to an opioid for increases for those suffering both from mental health and substance use disorders. The use of an opioid while taking other central nervous system depressants including but not limited to benzodiazepines or alcohol, or other opioids increases the risk of serious side effects that can include overdose or respiratory depression that can lead to serious injury or . Departure Forms: Excuse form Work or School Excused From: Work Excuse beginning now through the following date: October 10, 2024 Additional Instructions: No weight-bearing on left foot until seen and cleared by orthopedist. Referrals: NO PRIMARY CARE PROVIDER (PCP) VIVIAN MORTON Jr., MD Prescriptions Naloxone HCl (Narcan) 4 Mg/Actuation [place] 1 SPRAYS BOTHNARES ONCE for 1 Day, #1 EA 0 Refills Prov: KULWINDER THOMSON 10/03/24 Hydrocodone Bit/Acetaminophen (Hydrocodon-Acetaminophn 10-325 tablet) 10mg- 325mg Tablet 1 TAB PO QID PRN PRN for pain for 3 Days, #12 TAB Prov: KULWINDER THOMSON 10/03/24 Education Educated: Patient Educated regarding: diagnosis, treatment, prognosis, need for follow up Signature Scribe Signature: No scribe Attestation: The note accurately reflects work and decisions made by me.ALEJANDRO Alvarez 10/04/24 02:10 KULWINDER THOMSON October 03, 2024 16:12
[2024-10-03] MEDS ORDERED: NALO4SPR BOTHNARES (16:15)
[2024-10-03] MEDS ORDERED: HYDR-3972 PO (16:15)
[2024-10-03 16:38] VITALS: PULSE 115; RESP 19; O2SAT 98
== END 2024-10-03 16:39 | disposition home or self-care (01) ==
LOC: ER 12:54
DX: S82.892A Other fracture of left lower leg, initial encounter for closed fracture (principal); E11.9 Type 2 diabetes mellitus without complications; I25.10 Atherosclerotic heart disease of native coronary artery without angina pectoris; I48.91 Unspecified atrial fibrillation; Z88.0 Allergy status to penicillin; Z88.8 Allergy status to other drugs, medicaments and biological substances; X50.1XXA Overexertion from prolonged static or awkward postures, initial encounter; Y93.89 Activity, other specified; Y92.89 Other specified places as the place of occurrence of the external cause; Y99.8 Other external cause status
CPT/HCPCS: 73610; 99283

== ENCOUNTER 2025-01-11 08:25 | Outpatient (CLI) | payer BC ==
[~2025-01-11 08:25] MED LIST changes: -HYDR-3973 PO; +NALO4SPR BOTHNARES
[2025-01-11 09:42] LABS: CREATININE 1.19 MG/DL (0.60-1.10); TOTAL CARBON DIOXIDE 25.3 MMOL/L (24-32); eGFR 68 ML/MIN
== END 2025-01-11 23:59 | disposition home or self-care (01) ==
LOC: LAB 08:25
PROVIDERS: ATTEND Nurse Practitioner Family
DX: K76.0 Fatty (change of) liver, not elsewhere classified (principal); E10.65 Type 1 diabetes mellitus with hyperglycemia
CPT/HCPCS: 36415; 80053; 83036; 84439; 84443

== ENCOUNTER 2025-03-29 22:23 | Emergency (ER) | payer BC ==
[~2025-03-29] VITALS: Ht 193 cm; Wt 170.5 kg
[2025-03-29 22:42] VITALS: TEMP 96.8
--- NOTE | 2025-03-29 22:46 | Physician Documentation ---
History of Present Illness ~ Chief Complaint: Palpitations Stated Complaint: SOB Time Seen by MD: 22:31 Primary Medical Doctor: Ruiz CUNNINGHAM Patient presents to the emergency room with chief complaint of palpitations. History of atrial fibrillation which began a proximally 20 minutes prior to my physical exam and HPI. States he was driving to work when this occurred. Denies chest pain. Had a negative stress test one year ago. Takes amiodarone and reports compliance with both is amiodarone and Eliquis. Positive nausea without vomiting Medication Reconciliation Allergies: Coded Allergies: Penicillins (Verified Allergy, Unknown, 03/29/25) empagliflozin (Verified Allergy, Unknown, PUT PT IN DKA, 03/29/25) Scheduled Amiodarone HCl (Amiodarone HCl), 1 TAB PO BID Apixaban (Eliquis), 1 TAB PO Q12H, (Reported) Cholecalciferol (Vitamin D), 50,000 UNITS PO DAILY, (Reported) Insulin Glargine,Hum.rec.anlog (Toujeo Solostar), 40 UNITS SQ DAILY, (Reported) Insulin Lispro* (Humalog*), 1 UNIT SQ SLIDING SCALE, (Reported) Lisinopril (Lisinopril), 1 TAB PO DAILY Metoprolol Succinate (Metoprolol Succinate), 1 TAB PO DAILY, (Reported) Multivitamin (Multi Vitamin Daily), 1 EACH PO DAILY, (Reported) Naloxone HCl (Narcan), 1 SPRAYS BOTHNARES ONCE Rosuvastatin Calcium (Rosuvastatin Calcium), 1 TAB PO DAILY, (Reported) Spironolactone (Spironolactone), 1 TAB PO DAILY, (Reported) Past Medical History Past Medical History: Atrial Fibrillation, Diabetes, MRSA Abscess Past Surgical History: no surgical history Patient History: (CAD) Coronary arteriosclerosis MOTHER, Onset:30's - 40 (DM Type 2) Diabetes mellitus type 2 MOTHER (DM Type1) Diabetes mellitus type 1 FATHER Alcohol Use: Occasionally Drug Use: none Lives with: Family Lives In: Home Occupation: employed Review of Systems ROS All review of systems negative except as per HPI Physical Exam Vital Signs: Temperature: 96.8, Source: Temporal, Heart Rate: 161, Respiratory Rate: 17, BP: 199/148, Pulse Oximetry: 98, Weight: 170.500 Physical Exam General: Patient is awake, alert, oriented x4 in no acute distress. Anxious Head: Normocephalic and atraumatic. Eyes: Conjunctival normal. EOMI. PERRL. ENT: Mucous membranes moist. Neck: Supple, trachea is midline. Chest: Clear to auscultation bilaterally without rales, rhonchi, or wheezes. There is no accessory muscle use or retractions. Cardiac: Tachycardic irregular without murmurs, gallops, or rubs. Procedures Procedures Cardioversion: Patient found to be in AFib RVR. He is on Eliquis. Symptoms started a proximally 3 hours. After discussing risks and benefits and alternatives patient agrees for cardioversion. Status post written informed consent and status post time-out with Respiratory therapy at bedside patient was sedated using aliquots of propofol measuring 12 cc. Patient was successfully cardioverted on 1st attempt using 200 joules synchronized. Repeat EKG status post procedure shows return of spontaneous circulation. Patient tolerated procedure well without complication was monitored until achieving appropriate awareness to maintain his airway. Total time of procedure 15 minutes Progress Results/Orders Results/Orders Orders - CARLOS CLANCY MD Chest,Single View (03/29/25 22:24) Monitor (03/29/25 22:24) Saline Lock (03/29/25:24) Oxygen (03/29/25:24) Electrocardiogram (03/29/25:24) Hs Troponin I W Calculations (03/30/25 01:24) Dextrose 5%-Water (... W/Amiodarone Inj. (03/29/25 23:10) Page Hospitalist (03/30/25 00:14) Fill Out Med Reconciliation (03/30/25 00:14) Metoprolol Succinate Er Tablet (Toprol X (03/30/25 01:25) Completed Orders - CARLOS CLANCY MD Chest,Single View (03/29/25:24) Cbc/Diff (03/29/25:24) BMP (03/29/25:24) PBNP (03/29/25 22:24) Hs Troponin I W Calculations (03/29/25 22:24) Hs Troponin I W Calculations (03/30/25 00:24) Normal Saline 1000ml (0.9% Sodium Chlori (03/29/25 22:35) Diltiazem Iv (Cardizem Iv 5mg/Ml Inj.) (03/29/25 22:45) Ondansetron Inj. (Zofran 4mg/2ml Vial) (03/29/25 22:50) Diltiazem Iv (Cardizem Iv 5mg/Ml Inj.) (03/29/25 23:10) Amiodarone Inj. (Cordarone Inj.) (03/30/25 00:15) Midazolam 1 Mg/Ml 2ml Inj. (Versed 1 Mg/ (03/30/25 00:30) Propofol Inj (Diprivan Inj) (03/30/25 00:30) Amiodarone Inj. (Cordarone Inj.) (03/30/25 00:35) Medications Received in ER Medications (Trade) Dose Ordered Sig/Luz Route PRN Reason Start Time Stop Time Status Last Admin Dose Admin Sodium Chloride 1,000 ml @ 1,000 mls/hr ONCE ONCE IV 03/29/25 22:35 03/29/25 23:34 DC 03/29/25 22:50 1,000 MLS/HR (Cardizem IV 5mg/ ml inj.) 15 mg ONCE ONCE IV 03/29/25 22:45 03/29/25 22:46 DC 03/29/25 22:50 15 MG (Zofran 4mg/2ml vial) 4 mg ONCE ONCE IV 03/29/25 22:50 03/29/25 22:51 DC 03/29/25 22:52 4 MG (Cardizem IV 5mg/ ml inj.) 15 mg ONCE ONCE IV 03/29/25 23:10 03/29/25 23:13 DC 03/29/25 23:20 15 MG (Cordarone inj.) 300 mg ONCE ONCE IV 03/30/25 00:15 03/30/25 00:26 DC 03/30/25 00:40 300 MG (VERSED 1 MG/ML 2 ML inj.) 2 mg ONCE ONCE IV 03/30/25 00:30 03/30/25 00:31 DC 03/30/25 00:47 2 MG (Diprivan inj) 200 mg ONCE ONCE IV 03/30/25 00:30 03/30/25 00:31 DC 03/30/25 01:23 200 MG Vital Signs 10/3003/29/25 03/29/25 03/29/25 22:42 22:50 22:54 23:20 Temp 96.8 Pulse 161 158 140 Resp 17 20 B/P (MAP) 199/148 199/148 Pulse Ox 98 03/30/25 03/30/25 03/30/25 03/30/25 00:11 00:47 01:10 01:18 Pulse 114 152 90 Resp 16 18 18 16 B/P (MAP) 134/85 (101) 119/89 119/82 Pulse Ox 96 97 94 O2 Delivery Nasal Cannula Nasal Cannula O2 Flow Rate 2.0 2.0 03/30/25 01:19 Pulse 94 Resp 14 B/P (MAP) 137/94 (108) Pulse Ox 94 O2 Delivery Nasal Cannula O2 Flow Rate 2.0 Laboratory Tests Test 03/29/25 22:40 03/30/25 00:30 White Blood Count 5.3 Red Blood Count 4.61 L Hemoglobin 14.9 Hematocrit 45.1 Mean Corpuscular Volume 97.9 Mean Corpuscular Hemoglobin 32.4 H Mean Corpuscular Hemoglobin Concent 33.1 Red Cell Distribution Width 15.0 H Platelet Count 150 Mean Platelet Volume 10.2 Neutrophils (%) (Auto) 58.9 Lymphocytes (%) (Auto) 29.1 Monocytes (%) (Auto) 10.2 Eosinophils (%) (Auto) 0.6 Basophils (%) (Auto) 1.2 H Neutrophils # (Auto) 3.1 Lymphocytes # (Auto) 1.6 Monocytes # (Auto) 0.5 Eosinophils # (Auto) 0.0 Basophils # (Auto) 0.1 CBC Comment Sodium Level 136 Potassium Level 3.9 Chloride Level 100 Carbon Dioxide Level 25.6 Anion Gap 10 Blood Urea Nitrogen 7 Creatinine 0.91 Estimated GFR/1.73 m2 > 90 BUN/Creatinine Ratio 7.7 L Glucose Level 248 H Calcium Level 8.6 Troponin I High Sensitivity 12 12 Pro-B-Type Natriuretic Peptide < 30 Albumin 3.1 L Chemistry Comments Troponin I High Sens Percent Delta 0 Troponin I Hi Sens Absolute Change 0 EKG/XRAY/CT/US/VASC/MRI EKG : Additional Comment EKG interpreted by myself shows time of 07/20/2025, rate 173, AFib RVR, normal axis, no ST changes Medical Decision Making Additional information obtaine: old records Findings Patient presents to the emergency room in AFib RVR. Differentials include but are not limited to ACS, cardiac arrhythmia, electrolyte disturbances, NSTEMI therefore emergent labs ordered. Labs reassuring. Patient's heart rate is improving. He does qualify for cardioversion and after offering the option of admission patient would prefer cardioversion. Patient is status post cardioversion successfully. He is monitored for a time. 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 Differential Dx:Considerations: Include: angina / MO, atrial dysrhythmia, atrial fibrillation, atrial flutter, MAT, PACs, PSVT, sinus tachycardia, WPW, 1st degree AV block, 2nd degree AVB-type 1, 2nd degree AVB-type 2, 3rd degree AV block, PVCs, torsades de pointes, ventricular fibrillation, ventricular tachycardia, other Differential Dx:Considerations: Include anxiety/panic attack, Include digoxin toxicity, Include electrolyte disorder, Include heart failure, Include hyperthyroidism, Include hyperventilation, Include hypoxia, Include pacemaker malfunction, Include pulmonary embolus, Include renal failure, Include other Departure Disposition: 01 HOME / SELF CARE / HOMELESS Impression: Primary Impression: Atrial fibrillation with RVR Condition: Improved Discharge Instructions: Atrial Fibrillation, [id number] Additional Instructions: 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 Referrals: NO PRIMARY CARE PROVIDER (PCP) Critical Care Note Total Time (mins): 30 Critical Care Note The very real possibility of a deterioration of this patient's condition required the highest level of my preparedness for sudden, emergent intervention. I provided critical care services, which included medication orders, frequent reevaluations of the patient's condition and response to treatment, ordering and reviewing test results, and discussing the case with various consultants. Excludes time spent performing separately billable procedures. The critical care time associated with the care of the patient was 30 minutes not counting procedures Signature Scribe Signature: No scribe Attestation: The note accurately reflects work and decisions made by me.Carlos Clancy MD 03/30/25 01:37 CARLOS CLANCY MD Mar 29, 2025 22:46
[2025-03-29] MEDS: normal saline 1000ml 1,000 ML IV ONE (22:50)
[2025-03-29] MEDS: diltiazem 5mg/ml 5ml inj. IV ONE ×2 (22:50→23:20)
[2025-03-29] MEDS: ondansetron/PF 4mg/2ml inj IV ONE (22:52)
[2025-03-29 22:59] LABS: MEAN PLATELET VOLUME 10.2 FL (7.4-10.4); RED CELL DISTRIBUTION WIDTH 15.0 % (11.5-14.5)
[2025-03-29] MEDS: amiodarone inj. 450 MG in dextrose 5%-water 241 ML IV SCH (23:10)
--- NOTE | 2025-03-29 23:10 | RADIOLOGY REPORT ---
CHEST RADIOGRAPH Indication: CP Technique: Single frontal view of the chest was obtained COMPARISON: DI CHEST,SINGLE VIEW on DOS: 08/06/24, DI CHEST,SINGLE VIEW on DOS: 04/28/24, DI CHEST,SINGLE VIEW on DOS: 04/27/24, DI CHEST,SINGLE VIEW on DOS: 03/14/24, DI CHEST,SINGLE VIEW on DOS: 01/07/24 FINDINGS: Lines and Tubes: None Lungs: Clear Pleura: No effusion. No pneumothorax. Cardiomediastinal contours: Unremarkable Bones: Unremarkable IMPRESSION: 1. No acute disease.
[2025-03-29 23:46] LABS: CREATININE 0.91 MG/DL (0.60-1.10); PRO BRAIN NATRIURETIC PEPTIDE < 30 PG/ML (0-125); TOTAL CARBON DIOXIDE 25.6 MMOL/L (24-32); eCRCL 131 ML/MIN; eGFR > 90 ML/MIN
[2025-03-30] MEDS: amiodarone 50MG/ML inj IV ONE ×2 (00:40→00:45)
[2025-03-30] MEDS: midazolam 1 mg/ML 2ml injection IV ONE (00:47)
[2025-03-30] MEDS: propofol 10mg/ml 20ml vial IV ONE (01:23)
[2025-03-30] MEDS: metoprolol succinate 25mg (24-HOUR) SR. Tablet PO ONE (01:42)
[2025-03-30 01:53] VITALS: BP 138/86; PULSE 90; RESP 16; O2SAT 99
--- NOTE | 2025-03-30 06:04 | ELECTROCARDIOGRAPH REPORT ---
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 Kiran Blancas Measurements Intervals [place] Rate: 127 P: 36 ME: 54 QRS: 0 QRSD: 95 T: 53 QT: 350 QTc: 509 Interpretive Statements Sinus tachycardia Multiple premature complexes, vent & supraven Short ME interval Low voltage, precordial leads Baseline wander in lead(s) V3,V4,V5,V6 Electronically Signed On 04-03-2025 20:44:[address] Kiran Blancas Please click the below link to view image of tracing.
[2025-04-01] MEDS ORDERED: LANTUS SUBCUT (22:40)
[2025-04-01] MEDS ORDERED: AMIO200T76 PO (23:02)
--- NOTE | 2025-04-02 12:47 | ELECTROCARDIOGRAPH REPORT ---
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 Kiran Blancas Measurements Intervals [place] Rate: 173 P: 0 [place]: 0 QRS: 44 QRSD: 94 T: 29 QT: 293 QTc: 497 Interpretive Statements Atrial fibrillation Ventricular premature complex Baseline wander in lead(s) V3,V6 Electronically Signed On 04-03-2025 20:44:[address] Kiran Blancas Please click the below link to view image of tracing.
[2025-04-03] MEDS ORDERED: THIA50TA10 PO (15:13)
[2025-04-03] MEDS ORDERED: FOLI0.8C PO (15:13)
[2025-04-03] MEDS ORDERED: DILT240T PO (15:32)
[2025-04-03] MEDS ORDERED: LANTUS SUBCUT (15:34)
== END 2025-03-30 01:56 | disposition home or self-care (01) ==
LOC: ER 22:24
DX: I48.20 Chronic atrial fibrillation, unspecified (principal); E10.9 Type 1 diabetes mellitus without complications; I25.10 Atherosclerotic heart disease of native coronary artery without angina pectoris; I48.91 Unspecified atrial fibrillation; Z86.14 Personal history of Methicillin resistant Staphylococcus aureus infection; Z88.0 Allergy status to penicillin; Z88.8 Allergy status to other drugs, medicaments and biological substances; Z79.4 Long term (current) use of insulin; Z79.82 Long term (current) use of aspirin; Z79.899 Other long term (current) drug therapy; Z72.89 Other problems related to lifestyle
CPT/HCPCS: 36415; 71045; 80048; 83880; 84484; 85025; 93005; 96361; 96374; 96375; 99291; J0282; J2250; J2405; J2704; J3490; J7030; 92960; 96376; A4620

== ENCOUNTER 2025-05-18 07:36 | Outpatient (CLI) | payer BC ==
[~2025-05-18 07:36] MED LIST changes: +AMIO200T76 PO; -AMIO400T5 PO; +DILT240T PO; +FOLI0.8C PO; -INSU300I SQ; +LANTUS SUBCUT; -LISI5TAB22 PO; -NALO4SPR BOTHNARES; +THIA50TA10 PO
[2025-05-18 08:35] LABS: LEUKOCYTE ESTERASE ,URINE NEGATIVE (Neg); NITRITES, URINE NEGATIVE (Neg); OCCULT BLOOD,URINE NEGATIVE (Neg)
[2025-05-18 08:37] LABS: UA COLLECTION TYPE CLN CATCH MIDSTREAM
[2025-05-18 08:38] LABS: MEAN PLATELET VOLUME 10.9 FL (7.4-10.4); RED CELL DISTRIBUTION WIDTH 12.9 % (11.5-14.5)
[2025-05-18 08:45] LABS: FINE GRANULAR CAST 0-3 /LPF (NEGATIVE); HYALINE CASTS 0-3 /LPF (NEGATIVE); MUCUS STRANDS MANY /LPF (Neg); SQUAMOUS EPITHELIAL CELL,UR MODERATE /LPF (FEW)
[2025-05-18 09:09] LABS: CHOL/HDL RATIO 2.1 (0.00-4.99); CREATININE 1.18 MG/DL (0.60-1.10); LDL CHOLESTEROL 51 MG/DL (50-100); TOTAL CARBON DIOXIDE 23.7 MMOL/L (24-32); eGFR 68 ML/MIN
== END 2025-05-18 23:59 | disposition home or self-care (01) ==
LOC: LAB 07:36
PROVIDERS: ATTEND Nurse Practitioner Family
DX: E10.65 Type 1 diabetes mellitus with hyperglycemia (principal); E78.00 Pure hypercholesterolemia, unspecified; K75.81 Nonalcoholic steatohepatitis (NASH); I48.91 Unspecified atrial fibrillation
CPT/HCPCS: 36415; 80053; 80061; 81001; 83036; 85025; 87088